=== PATIENT | female | born 1950 | race Caucasian/White ===

== ENCOUNTER → 2018-06-28 09:11 | Outpatient (CLI) | payer OTHER, SELFPAY ==
[2018-06-28 11:21] LABS: Abs Immature Grans 0.01 k/cumm (0.0-0.09); Absolute Eosinophil Count 0.22 k/cumm (0.0-0.7); Absolute Lymphocyte Count 1.45 k/cumm (1.2-3.4); Absolute Monocyte Count 0.51 k/cumm (0.11-0.7); Absolute Neutrophil Count 3.26 k/cumm (1.2-6.7); Basophils % 1.8; HCT 40.1 % (36.0-46.0); HGB 13.3 g/dL (12.0-15.5); Immature Grans % 0.2; Lymphocytes % 26.1; Mean Corp. HGB Concentration 33.2 g/dL (32.0-36.0); Mean Corpuscular Hemoglobin 30.1 pg (27.0-33.0); Mean Corpuscular Volume 90.7 fL (80-95); Mean Platelet Volume 10.7 fL (8.0-11.0); Monocytes % 9.2; Neutrophils % 58.7; Platelet Count 277 x1000/uL (130-400); RBC 4.42 m/cumm (4.00-5.20); White Blood Cell Count 5.55 k/cumm (4.4-10.8)
[2018-06-28 11:44] LABS: ALT 24 U/L (12-78); AST 20 U/L (15-37); Albumin 3.7 g/dL (3.4-5.0); Alkaline Phosphatase 116 U/L (46-116); Anion Gap 9.3 mmol/L (3-11); BUN 22 mg/dL (7-18); Bilirubin, Total 0.3 mg/dL (0.2-1.0); CO2 25.7 mmol/L (21.0-32.0); Calcium 8.7 mg/dL (8.5-10.1); Chloride 109 mmol/L (98-107); Estimated GFR 55.47 (mL/min/1.73m2); Glucose 90 mg/dL (70-100); Potassium 5.3 mmol/L (3.5-5.1); Sodium 144 mmol/L (136-145); Total Protein 6.7 g/dL (6.4-8.2)
== END ==
PROVIDERS: PCP Family Medicine; Visit Provider Family Medicine
DX: R10.13 Epigastric pain (principal); R10.9 Unspecified abdominal pain
CPT/HCPCS: 36415; 80053; 85025

== ENCOUNTER 2018-08-24 01:23 | Outpatient (CLI) | payer OTHER, MEDICARE, SELFPAY ==
--- NOTE | 2018-08-24 08:17 | DI.US_ITS ---
SYMPTOMS/DIAGNOSIS: GLOBUS SENSATION, THYROID NODULE, E04.1 THYROID ULTRASOUND: The right thyroid lobe measures 4.2 x 1.8 x 1.6 cm and contains a lower pole nodule measuring 9 x 5 x 6 mm, which is hypoechoic with some peripheral vascularity. The isthmus measures 5 mm. The left thyroid lobe measures 4.3 x 1.7 x 0.5 cm and is acoustically unremarkable. SUMMARY: A 9 x 5 x 6 mm right lower pole nodule is demonstrated. The examination is otherwise unremarkable.
[2018-08-24 08:40] LABS: TSH (W/Ref FT4) 5.04 uIU/mL (0.358-3.74)
[2018-08-24 08:56] LABS: FREE T4 0.91 ng/dL (0.76-1.46)
[2018-08-24] MEDS: Barium Sulfate 60% W/V 355 ML BTL PO (09:06)
--- NOTE | 2018-08-24 09:07 | DI.RAD_ITS ---
SYMPTOMS/DIAGNOSIS: DYSPHAGIA, R13.10 BARIUM SWALLOW: The patient swallowed barium without difficulty. There is some prominence of the epiglottis. No discrete mass is seen. There is no diverticulum or stricture. The esophagus appears unremarkable. SUMMARY: No stricture or diverticulum is demonstrated. Prominence of the epiglottis is identified. There is no definite mass; however, if there is any further clinical question, correlation with esophagoscopy is recommended.
== END 2018-08-24 01:43 ==
PROVIDERS: PCP Family Medicine; Visit Provider Family Medicine
DX: R13.10 Dysphagia, unspecified (principal); E04.1 Nontoxic single thyroid nodule; F45.8 Other somatoform disorders; K22.9 Disease of esophagus, unspecified
CPT/HCPCS: 36415; 74220; 76536; 84439; 84443

== ENCOUNTER 2018-08-30 00:09 | Outpatient (CLI) | payer OTHER, MEDICARE, SELFPAY ==
--- NOTE | 2018-08-30 07:30 | DI.MAMMO_ITS ---
SYMPTOM/DIAGNOSIS: SCREENING, Z12.31 MAMMOGRAMS: Mammograms were interpreted according to the usual protocol including computer analysis with CAD system, tomosynthesis and C view imaging. Comparison is made with exams from [id number]. The breasts are composed of fatty density tissue, breast density, Category A. No suspicious masses or suspicious microcalcifications are seen. There has been no significant change. IMPRESSION: Category 1A, negative mammogram. Routine screening is recommended. SA ASSESSMENT OF FINDINGS: Negative. Category 1. Patient will receive a letter notifying them of these results. BI-RAD category A. The breasts are almost entirely fatty.
== END 2018-08-30 00:29 ==
PROVIDERS: PCP Family Medicine; Visit Provider Family Medicine
DX: Z12.31 Encounter for screening mammogram for malignant neoplasm of breast (principal)
CPT/HCPCS: 77063; 77067

== ENCOUNTER 2018-09-03 02:24 | Outpatient (CLI) | payer OTHER, MEDICARE, SELFPAY ==
[2018-09-03 08:04] LABS: Iron 79 ug/dL (50-175)
[2018-09-03 08:18] LABS: ALT 24 U/L (12-78); AST 16 U/L (15-37); Albumin 3.4 g/dL (3.4-5.0); Alkaline Phosphatase 111 U/L (46-116); Anion Gap 6.7 mmol/L (3-11); BUN 19 mg/dL (7-18); Bilirubin, Total 0.4 mg/dL (0.2-1.0); CO2 30.3 mmol/L (21.0-32.0); CREATININE 1.07 mg/dL (0.55-1.02); Calcium 8.7 mg/dL (8.5-10.1); Chloride 107 mmol/L (98-107); Estimated GFR 51.31 (mL/min/1.73m2); Ferritin 18 ng/mL (8-388); Glucose 88 mg/dL (70-100); Potassium 4.1 mmol/L (3.5-5.1); Sodium 144 mmol/L (136-145); TSH (W/Ref FT4) 5.34 uIU/mL (0.358-3.74); Total Protein 6.1 g/dL (6.4-8.2)
[2018-09-03 08:34] LABS: FREE T4 0.93 ng/dL (0.76-1.46)
== END 2018-09-03 02:44 ==
PROVIDERS: PCP Family Medicine; Visit Provider Family Medicine
DX: G25.81 Restless legs syndrome (principal); R79.89 Other specified abnormal findings of blood chemistry
CPT/HCPCS: 36415; 80053; 82728; 83540; 84439; 84443

== ENCOUNTER 2018-10-15 08:24 | Outpatient (CLI) | payer OTHER, MEDICARE, SELFPAY ==
[2018-10-15 16:15] LABS: TSH 2.57 uIU/mL (0.358-3.74)
[2018-10-15 16:18] LABS: Ferritin 20 ng/mL (8-388)
== END 2018-10-15 08:44 ==
PROVIDERS: Nurse Practitioner; PCP Family Medicine; Visit Provider Family Medicine
DX: R79.89 Other specified abnormal findings of blood chemistry (principal); M25.50 Pain in unspecified joint
CPT/HCPCS: 36415; 82728; 84443

== ENCOUNTER 2018-11-24 10:28 | Emergency (ER) | payer OTHER, MEDICARE, SELFPAY ==
[2018-11-24] VITALS (22 sets, daily range): BP systolic 107–129; BP diastolic 62–103; PULSE 62–77; RESP 12–24; TEMP 36.8–37; O2SAT 93–98
--- NOTE | 2018-11-24 10:46 | ED.GENADUL_ITS ---
Discharge Plan Discharge Details Chief Complaint: Palpitatns Clinical Impression: Heart palpitations, Chest pain Primary Care Provider: Tali Rosa ED Provider: Yobani Colbert Home Meds and New Rx's Prescriptions: No Action adjuvant AS01B (PF)vial 1 of 2 [Shingrix Adjuvant Component-PF] suspension 1 ml IM ONCE Qty: 0.5 RF: 1 cyanocobalamin (vitamin B-12) [Vitamin B-12] 1,000 MCG tablet 1 tab PO DAILY RF: 0 calcium carbonate [Caltrate 600] 600 MG tablet 1 tab PO DAILY RF: 0 CENTRUM SILVER TABLET 1 EACH tablet 1 ea PO DAILY RF: 0 ibuprofen 600 MG tablet 600 mg PO Q6H PRN Qty: 120 RF: 0 bupropion HCl 300 MG tablet extended release 24 hr 300 mg PO DAILY Qty: 90 RF: 11 levothyroxine 50 mcg capsule 50 mcg PO DAILY Qty: 90 RF: 6 hydrochlorothiazide 25 mg tablet 25 mg PO DAILY Qty: 90 RF: 12 Discharge Instructions Instructions: Chest Pain (ED), Palpitations (ED) Additional Instructions: Please follow-up with your primary care provider as soon as possible for reassessment and for review of the Zeo patch. Please perform the exercise stress test that is scheduled here at the hospital. If you notice any worsening of your symptoms, or any new symptoms such as vomiting, diarrhea, fever, chills, shortness of breath, chest pain, numbness, weakness, or fainting , please return immediately to the emergency department for reevaluation. Please follow up with your primary care provider as soon as possible for reassessment and reevaluation. As always, it was a pleasure participating in your medical care today. Referrals: Tali Rosa MD, [place] [Primary Care Provider] - Medical Decision Making This is a 68-year-old female who presents for palpitations for the last 3 weeks. They are intermittent, usually occur in the morning, last 30 minutes. She has a slight change today with a small amount of twinging chest pain which is very brief, just achy. No tearing sensation, no heavy weight or pressure on her chest, no ripping sensation. She currently has no symptoms of palpitations at this time. She did contact her PCP who recommended that she come in for further evaluation in the ER. Patient does have cardiac risk factors of sleep apnea, obesity, hypertension and family disease. We will perform a cardiac workup, look for electrolyte abnormalities as she does have a history of bariatric surgery. I anticipate most of this will be relatively benign in the workup, and we will schedule for an outpatient Ziehl patch, as well as an outpatient exercise stress test. Patient does have a heart score of 4, and I feel at the very least a 3-hour troponin is certainly indicated. 2:03 PM Patient serial EKGs demonstrates no significant concerning abnormalities for STEMI. No significant hyper acute T wave changes. Serial troponins are all within normal limits. Patient has had appropriate echo stress test set up on an outpatient basis as well as cardiac monitoring testing. With negative serial troponins, negative EKGs, and signs and symptoms that certainly do appear atypical for ACS, though more clinically consistent with mild palpitations I feel she can be safely discharged home with close follow-up. I have extensively reviewed the treatment plan and discharge instructions with the patient. I have addressed all patient concerns at this time. The patient was made aware of what symptoms to monitor for that would warrant a return to the emergency department. Discussed the plan with the patient, they demonstrate verbal understanding and agreement with our assessment and plan at this time. EKG 10: 38 Rate 72, sinus rhythm, TN 170, QTc 431, QRS 100, no significant ST elevations or depressions, incomplete left bundle branch block, no significant Q waves except for very small questionable Q in aVF. No evidence of epsilon wave or delta wave. No evidence of Wellen syndrome or Brugada syndrome. EKG 11: 38 Rate 67, intervals normal, sinus rhythm, incomplete left bundle branch block. No ST elevations or depressions, no T wave inversions. No significant Q waves except for a small Q wave in aVF. PA AND LATERAL CHEST: Comparison is made with [id number]. The heart size is normal. The aorta is mildly tortuous. The lungs appear clear. No infiltrate, effusion or pneumothorax is seen. Degenerative changes are seen in the spine. No compression fractures are seen. IMPRESSION: No acute abnormality. HPI General Date/Time Provider Initiated Documentation: 11/24/18 10:43 . HPI Narrative: This is a 68-year-old female with past medical history of obstructive sleep apnea, hypertension, obesity, and a family history of cardiac disease who presents today for evaluation of palpitations. Patient states that for the last 3 weeks since she has had intermittent palpitations, usually lasting 30 minutes, usually present shortly after she wakes up in the morning. She denies any exertional component. And normally she has no chest pain. Today she has noticed slight twinges on the left side of her chest and some in the central region of her chest. This is still not exertional. No radiation to her arm or neck. She denies any pleuritic chest pain. Denies PE risk factors such as recent long car rides, immobilization, recent surgery, prior history of DVT or PE, family history of PE or DVT, morbid obesity, exogenous estrogen and smoking, hemoptysis, history of cancer. The patient did just have a sleep study, and this confirmed the continued need for CPAP at home. She did discuss the case with the ring maker at that time who recommended she follow-up with her PCP. The patient denies any tobacco history, any history of high cholesterol, or diabetes. Patient did have a stress test outpatient over 3 years ago. No abnormalities M. No history of cardiac disease. The patient denies any other complaints or modifying factors at this time. She denies any increase of alcohol use, any thyroid disease, or any increased use in caffeine. Past surgical history is positive for bariatric surgery. She denies any IV or illicit drug use. Related Data Home Medications Medication Instructions Recorded Confirmed Centrum Silver Tablet 1 ea PO DAILY 03/14/13 03/23/17 calcium carbonate [Caltrate 600] 1 tab PO DAILY 03/14/13 08/17/18 cyanocobalamin (vitamin B-12) 1 tab PO DAILY 03/14/13 08/17/18 [Vitamin B-12] ibuprofen 600 mg PO Q6H PRN #120 tab-cap 05/17/18 08/17/18 bupropion HCl 300 mg PO DAILY #90 tab-cap 06/28/18 08/17/18 adjuvant AS01B (PF), component 1 ml IM ONCE #0.5 ml 08/17/18 08/17/18 vial 1 of 2 intramuscular suspension levothyroxine 50 mcg capsule 50 mcg PO DAILY #90 cap 09/03/18 hydrochlorothiazide 25 mg tablet 25 mg PO DAILY #90 tab 09/22/18 Previous Rx's Medication Instructions Recorded ibuprofen 600 mg PO Q6H PRN #120 tab-cap 05/17/18 bupropion HCl 300 mg PO DAILY #90 tab-cap 06/28/18 adjuvant AS01B (PF), component 1 ml IM ONCE #0.5 ml 08/17/18 vial 1 of 2 intramuscular suspension levothyroxine 50 mcg capsule 50 mcg PO DAILY #90 cap 09/03/18 hydrochlorothiazide 25 mg tablet 25 mg PO DAILY #90 tab 09/22/18 Allergies Allergy/AdvReac Type Severity Reaction Status Date / Time meloxicam AdvReac Nausea Unverified 08/17/18 15:38 General Stated Complaint: Palpitatns EMILY: 2 Review of Systems Review of Systems All systems reviewed & are unremarkable except as noted in HPI and below PFSH Medical History Right Achilles tendinitis (Chronic 09/10/15) Reactive airway disease with acute exacerbation (Chronic 10/29/15) Primary insomnia (Chronic 09/10/15) Peptic reflux disease (Chronic 03/15/13) Knee pain (Chronic) Internal hemorrhoids without complication (Chronic) Increased body mass index (Chronic) Incontinence of feces (Chronic) Herpes zoster with complication (Chronic 05/17/18) Heart palpitations (Chronic 05/06/16) Essential hypertension (Chronic 10/21/13) Diverticulosis of colon without diverticulitis (Chronic) Depressive disorder (Chronic) Bursitis, calcaneal (Chronic 07/17/15) Bilateral low back pain without sciatica (Chronic) Anxiety (Chronic) Surgical History Status post bariatric surgery (Chronic) Appendectomy (~11/1995) Cholecystectomy (~2003) Colonoscopy - MAC GASTRIC SURGERY (~09/2007) Family History Mother RA (rheumatoid arthritis) Diabetes Essential hypertension Heart disease COPD (chronic obstructive pulmonary disease) Father COPD (chronic obstructive pulmonary disease) Sister Heart disease Brother No problems noted. Grandfather No problems noted. Grandfather No problems noted. Grandmother No problems noted. Grandmother No problems noted. 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 3.ENT: Atraumatic external nose and ears. Moist MM. Neck: Symmetric, trachea midline, No thyromegaly. 4.CVS: +S1/S2, No murmurs or gallops. Peripheral pulses 2+ and equal in all extremities. Brisk capillary refill in all extremities. Radial pulses +2 and equal bilaterally. 5.RESP: Unlabored respiratory effort. Clear to auscultation bilaterally. No wheezes rales or rhonchi 6.GI: Soft, Nontender/Nondistended, No hepatosplenomegaly. No guarding or rebound. 7.MSK: Normocephalic/Atraumatic, Extremities w/o deformity or ttp No cyanosis or clubbing, Normal movement of all extremities. No calf tenderness. 8.Skin: Warm, Dry. No rashes or lesions. 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 Sensation grossly intact, no focal neurologic deficits. 10.Psych: (AAO) x3. Appropriate mood and affect Course Vital Signs Temperature 37.0 C 11/24/18 10:39 Pulse 73 11/24/18 10:39 Respiratory Rate 14 11/24/18 10:39 Blood Pressure 129/103 H 11/24/18 10:39 Pulse Oximetry 97 11/24/18 10:39 Temperature 37.0 C 11/24/18 10:39 Temperature Source Temporal Artery Scan 11/24/18 10:39 Pulse 73 11/24/18 10:39 Respiratory Rate 14 11/24/18 10:39 Respiratory Effort Non-Labored 11/24/18 10:39 Blood Pressure 129/103 H 11/24/18 10:39 Pulse Oximetry 97 11/24/18 10:39 Oxygen Delivery Method Room Air 11/24/18 10:39 Oxygen Flow Rate 0 11/24/18 10:39
[2018-11-24 10:55] LABS: Abs Immature Grans 0.01 k/cumm (0.0-0.09); Absolute Basophil Count 0.07 k/cumm (0.0-0.2); Absolute Eosinophil Count 0.21 k/cumm (0.0-0.7); Absolute Lymphocyte Count 1.55 k/cumm (1.2-3.4); Absolute Monocyte Count 0.54 k/cumm (0.11-0.7); Basophils % 1.2; Eosinophils % 3.5; HCT 42.6 % (36.0-46.0); HGB 14.3 g/dL (12.0-15.5); Immature Grans % 0.2; Lymphocytes % 25.5; Mean Corp. HGB Concentration 33.6 g/dL (32.0-36.0); Mean Corpuscular Hemoglobin 30.8 pg (27.0-33.0); Mean Corpuscular Volume 91.6 fL (80-95); Mean Platelet Volume 9.8 fL (8.0-11.0); Monocytes % 8.9; Neutrophils % 60.7; Platelet Count 315 x1000/uL (130-400); RBC 4.65 m/cumm (4.00-5.20); RBC Distribution Width 13.2 % (11.7-14.6); White Blood Cell Count 6.08 k/cumm (4.4-10.8)
--- NOTE | 2018-11-24 11:03 | DI.RAD_ITS ---
SYMPTOMS/DIAGNOSIS: LEFT CENTRAL CHEST PAIN PA AND LATERAL CHEST: Comparison is made with [id number]. The heart size is normal. The aorta is mildly tortuous. The lungs appear clear. No infiltrate, effusion or pneumothorax is seen. Degenerative changes are seen in the spine. No compression fractures are seen. IMPRESSION: No acute abnormality.
[2018-11-24 11:20] LABS: ALT 31 U/L (12-78); AST 20 U/L (15-37); Albumin 3.9 g/dL (3.4-5.0); Alkaline Phosphatase 127 U/L (46-116); Anion Gap 10.8 mmol/L (3-11); BUN 21 mg/dL (7-18); Bilirubin, Total 0.3 mg/dL (0.2-1.0); CO2 30.2 mmol/L (21.0-32.0); CREATININE 1.15 mg/dL (0.55-1.02); Calcium 9.1 mg/dL (8.5-10.1); Chloride 104 mmol/L (98-107); Estimated GFR 47.07 (mL/min/1.73m2); Glucose 96 mg/dL (70-100); Magnesium 2.3 mg/dL (1.8-2.4); PHOSPHORUS 3.4 mg/dL (2.6-4.7); Potassium 3.3 mmol/L (3.5-5.1); Sodium 145 mmol/L (136-145); TSH (W/Ref FT4) 1.48 uIU/mL (0.358-3.74); Total Protein 7.5 g/dL (6.4-8.2)
[2018-11-24 11:21] LABS: Troponin I < 0.02 ng/mL (0.00-0.06)
--- NOTE | 2018-11-24 11:26 | NUR.NOTE ---
Addendum entered by Meg Montiel 11/24/18 11:53: Patient realized that tomorrow was not a good time for her. She scheduled the stress test for @ 8:30am. Meg Montiel Original Note: Nursing Note: Regular treadmill stress test scheduled for patient, . @ 8:30am. Pt given instruction sheet. Meg Montiel.
[2018-11-24 13:56] LABS: Troponin I 0.02 ng/mL (0.00-0.06)
--- NOTE | 2018-12-13 11:45 | ZIOP_ITS ---
ZIO PATCH INTERPREATION DATE OF DICTATION December 13, 2018 INDICATION Palpitations. Analysis time 13 days and 2 hours. The predominant underlying rhythm is sinus rhythm. Average heart rate 68 beats per minute. Minimum heart rate 46 beats per minute. Max heart rate 139 beats per minute. Two short bursts of SVT. The longest lasting 8 beats with an average heart rate of 111 beats. Otherwise, rare isolated atrial ectopy. Rare isolated ventricular ectopy. No nonsustained VT. No significant pauses or bradyarrhythmias. Four patient triggered events correspond predominantly to sinus rhythm and occasionally to sinus rhythm with an isolated PAC. Four diary entries with symptoms such as fluttering/racing/lightheadedness/chest pressure corresponding predominant to sinus rhythm and occasionally to sinus rhythm with isolated atrial ectopy. Ebony Alegria M.D. [facility] - 12/13/2018
== END 2018-11-24 14:09 | disposition home or self-care (01) ==
PROVIDERS: Emergency Provider Student in an Organized Health Care Education/Training Program; PCP Family Medicine
DX: R00.2 Palpitations (principal); R07.9 Chest pain, unspecified; Z83.2 Family history of diseases of the blood and blood-forming organs and certain disorders involving the immune mechanism; I10 Essential (primary) hypertension
CPT/HCPCS: 36415; 80053; 93005; 93225; 99285; 71046; 83735; 84100; 84443; 84484; 85025; 93010

== ENCOUNTER 2018-12-01 00:20 | Outpatient (CLI) | payer OTHER, MEDICARE, SELFPAY ==
--- NOTE | 2018-12-01 08:30 | ETT_ITS ---
*[facility]* *[facility]* [address] [place] [address] Stress Electrocardiography Marco Antonio protocol Date of study: 12/01/2018 *PATIENT PRESENTATION* Height: 157.5cm (62in) Blood Pressure: Weight: 113.2kg (249lb) BSA: 2.29m^2 Referring physician: Yobani Colbert Ordering physician: Yobani Colbert Impressions: Normal study after maximal exercise. Summary: 1. Stress ECG conclusions: The stress ECG is negative. Farooq treadmill score: 8. This score predicts a low risk of cardiac events. 2. Stress: The target heart rate was achieved. The heart rate response to stress is normal. There is a normal resting blood pressure with an appropriate response to stress. The patient experienced no chest pain during stress. Exercise capacity is above normal for age. 3. Treadmill exercise testing was performed using the Marco Antonio protocol. The patient exercised for 8 min, to protocol stage 3, to a maximal work rate of 10.2mets. Exercise was terminated due to dyspnea and fatigue. Indication: R07.9, Appropriate Use Criteria: A (Appropriate). History: Risk factors: Family history of coronary artery disease. Hypertension. Obesity. Cholesterol: 164mg/dl. HDL: 74mg/dl. LDL: 83mg/dl. Triglycerides: 66mg/dl. ALLERGIES: NO KNOWN ALLERGIES. MEDICATIONS: HYDROCHLOROTHIAZIDE 25 MG DAILY. BUPROPION XL 300 MG DAILY. ATENOLOL-CHLORTHALID 50MG-25MG DAILY. FERROUS SULFATE 325 MG ONCE DAILY. RA VITAMIN C 500 MG DAILY. LEVOTHYROXINE SODIUM 50MCG DAILY. Protocol: Marco Antonio protocol. Baseline ECG: SINUS RHYTHM. HR 64 BPM. Normal ECG. Stress protocol: + +---+ + !Stage !HR !BP (mmHg) ! + +---+ + !Baseline supine !64 !110/72 (85) ! + +---+ + !Baseline standing !70 !128/80 (96) ! + +---+ + !Stage I; 1.7mph, 10degrees; 3 min !119!140/78 (99) ! + +---+ + !Stage II; 2.5mph, 12degrees; 3 min !121!160/82 (108) ! + +---+ + !Stage III; 3.4mph, 14degrees; 3 min!142!160 (systolic)! + +---+ + !Recovery; 1 min !118!180/80 (113) ! + +---+ + !Recovery; 3 min !85 !160/80 (107) ! + +---+ + !Recovery; 6 min !79 !128/70 (89) ! + +---+ + * Stress results: Maximal heart rate during stress was 141bpm (92% of maximal predicted heart rate). The maximal predicted heart rate was 153bpm. The target heart rate was achieved. The heart rate response to stress is normal. There is a normal resting blood pressure with an appropriate response to stress. The rate-pressure product for the peak heart rate and blood pressure was 30272yx Hg/min. The patient experienced no chest pain during stress. Exercise capacity is above normal for age. Stress ECG: TREADMILL PORTION OF STRESS TEST ENDED IN 8 MINUTES DUE TO FATIGUE AND SHORTNESS OF BREATH. MAX HR = 141 % OF TARGET = 92. APPROXIMATE METS ACHIEVED = 10.16 RARE PVCs NO ANGINA NO SIGNIFICANT ST SEGMENT CHANGES ABOVE AVERAGE FUNCTIONAL CAPACITY FOR EXERCISE. The stress ECG is negative. Farooq treadmill score: 8. This score predicts a low risk of cardiac events. Study data: Cornel Mullins MD supervised and was readily available during the procedure. This study was interpreted by [facility]. Study status: Routine. Consent: The risks, benefits, and alternatives to the procedure were explained to the patient and informed consent was obtained. Procedure: Initial setup. A baseline ECG was recorded. Surface ECG leads and manual cuff blood pressure measurements were monitored. Heart sounds: Normal. Lung sounds: Normal. Treadmill exercise testing was performed using the Marco Antonio protocol. The patient exercised for 8 min, to protocol stage 3, to a maximal work rate of 10.2mets. Exercise was terminated due to dyspnea and fatigue. Study completion: The patient tolerated the procedure well and was discharged from the lab. Discharge: The patient left the laboratory in stable condition. Birthdate: Patient birthdate: 1950. Sex: Gender: female. Study date: Study date: 12/01/2018. Study time: 08:30 AM. Signature Documentation: The Stress ECG portion of this study was interpreted by Cornel Mlulins MD. Electronically signed by Cornel Mullins 12/01/2018 10:59
== END 2018-12-01 00:40 ==
PROVIDERS: PCP Family Medicine; Visit Provider Student in an Organized Health Care Education/Training Program
DX: R07.9 Chest pain, unspecified (principal); I10 Essential (primary) hypertension; E66.9 Obesity, unspecified; Z82.49 Family history of ischemic heart disease and other diseases of the circulatory system
CPT/HCPCS: 93016; 93018; 93017

== ENCOUNTER 2019-03-14 00:54 | Outpatient (CLI) | payer OTHER, MEDICARE, SELFPAY ==
--- NOTE | 2019-03-14 15:31 | DI.US_ITS ---
SYMPTOM/DIAGNOSIS: 6 MO F/U, F/U THYROID NODULE, E04.1,E03.8 THYROID ULTRASOUND: Comparison is made with 08/24/18. The right lobe measures 3.5 by 1.9 by 1.7 cm. The left lobe measures 3.8 by 1.5 by 1.3 cm. The isthmus measures .5 cm. There is normal and symmetric blood flow to the thyroid gland. There is again seen a hypoechoic, avascular nodule in the lower pole of the right lobe of the thyroid gland. It measures .8 by .8 by .5 cm. compared with .9 by .5 by .6 cm. on the prior examination. No other thyroid nodules are appreciated. IMPRESSION: Solid, 0.8 cm. thyroid nodule.
== END 2019-03-14 01:14 ==
PROVIDERS: PCP Family Medicine; Visit Provider Physician Assistant
DX: E04.1 Nontoxic single thyroid nodule (principal); E03.8 Other specified hypothyroidism
CPT/HCPCS: 76536

== ENCOUNTER 2020-05-11 00:47 | Outpatient (CLI) | payer MEDICARE, OTHER, SELFPAY ==
--- NOTE | 2020-05-11 08:15 | DI.RAD_ITS ---
EXAM: XR CERVICAL SPINE COMP 4-5V CLINICAL HISTORY: neck pain ? myelopathy, neck pain, M54.2. TECHNIQUE: 2D digital imaging was performed. COMPARISON: No exams were available for comparison FINDINGS: The odontoid is intact. The lateral masses appear well aligned. There is normal alignment of the ce rvical spine. There is disc space narrowing at C5-6 and C6-C7. Endplate osteophytes are seen throug hout the cervical spine. There are degenerative changes of the facet throughout the cervical spine. There is mild bilateral neural foraminal narrowing at C4-5 and C5-C6. No acute fractures or subluxa tions are seen. The prevertebral soft tissues are unremarkable. IMPRESSION: Moderate cervical spondylosis. DATA REPOSITORY: RADIATION DOSE DELIVERED:
--- NOTE | 2020-05-11 08:15 | DI.RAD_ITS ---
EXAM: XR LUMBAR SPINE COMPLETE CLINICAL HISTORY: LBP and b/l leg pain, M54.5. TECHNIQUE: 2D digital imaging was performed. COMPARISON: No exams were available for comparison FINDINGS: There are 5 lumbar type vertebral bodies. There is normal alignment. No spondylolysis or spondyloli sthesis is seen. There is disc space narrowing at L4-5 and L5-S1. Endplate osteophytes are seen thr oughout the lumbar spine. Facet arthropathy is present throughout the lumbar spine. No acute fractu re or subluxation is seen. Surgical clips are seen overlying the left abdomen. IMPRESSION: Moderate degenerative changes in the lumbar spine. DATA REPOSITORY: RADIATION DOSE DELIVERED:
--- NOTE | 2020-05-11 08:15 | DI.RAD_ITS ---
EXAM: XR HIP PELVIS ADULT BL CLINICAL HISTORY: b/l hip pain, M25.551, M25.552. TECHNIQUE: 2D digital imaging was performed. COMPARISON: No exams were available for comparison FINDINGS: Mild degenerative changes are seen at the hips bilaterally characterized by joint space narrowing and subchondral sclerosis. The sacroiliac joints and symphysis pubis are intact. No acute fracture or dislocation is seen. The soft tissues are unremarkable. IMPRESSION: Mild degenerative changes of the hips. DATA REPOSITORY: RADIATION DOSE DELIVERED:
== END 2020-05-11 01:07 ==
PROVIDERS: PCP Family Medicine; Visit Provider Family Medicine
DX: M54.2 Cervicalgia (principal); M50.322 Other cervical disc degeneration at C5-C6 level; M50.323 Other cervical disc degeneration at C6-C7 level; M47.812 Spondylosis without myelopathy or radiculopathy, cervical region; M25.551 Pain in right hip; M25.552 Pain in left hip; M16.0 Bilateral primary osteoarthritis of hip; M54.5 Low back pain; M79.604 Pain in right leg; M79.605 Pain in left leg; M47.817 Spondylosis without myelopathy or radiculopathy, lumbosacral region; M51.37 Other intervertebral disc degeneration, lumbosacral region
CPT/HCPCS: 73521; 72050; 72110

== ENCOUNTER 2020-05-14 02:14 | Outpatient (CLI) | payer MEDICARE, OTHER, SELFPAY ==
[2020-05-14 13:53] LABS: HCT 40.4 % (36.0-46.0); HGB 13.4 g/dL (12.0-15.5); Mean Corp. HGB Concentration 33.2 g/dL (32.0-36.0); Mean Corpuscular Hemoglobin 30.2 pg (27.0-33.0); Mean Corpuscular Volume 91.2 fL (80-95); Mean Platelet Volume 9.5 fL (8.0-11.0); Platelet Count 338 x1000/uL (130-400); RBC 4.43 m/cumm (4.00-5.20); RBC Distribution Width 13.1 % (11.7-14.6); White Blood Cell Count 6.84 k/cumm (4.4-10.8)
[2020-05-14 14:24] LABS: Iron 99 ug/dL (50-170)
[2020-05-14 14:32] LABS: ALT 29 U/L (14-59); AST 21 U/L (15-37); Albumin 3.8 g/dL (3.4-5.0); Alkaline Phosphatase 127 U/L (46-116); Anion Gap 9.1 mmol/L (3-11); BUN 21 mg/dL (7-18); Bilirubin, Total 0.3 mg/dL (0.2-1.0); CO2 27.9 mmol/L (21.0-32.0); CREATININE 1.03 mg/dL (0.55-1.02); Calcium 8.7 mg/dL (8.5-10.1); Calculated LDL 89 mg/dL (<100); Chloride 105 mmol/L (98-107); Cholesterol 176 mg/dL (<200); Estimated GFR 53.29 (mL/min/1.73m2); Glucose 82 mg/dL (74-106); HDL Cholesterol 71 mg/dL (40-60); Potassium 3.9 mmol/L (3.5-5.1); Sodium 142 mmol/L (136-145); TSH (W/Ref FT4) 2.81 uIU/mL (0.36-3.74); Total Protein 6.7 g/dL (6.4-8.2); Triglyceride 82 mg/dL (<150)
[2020-05-15 09:14] LABS: Thyroglobulin Antibody 88 U/mL (<=60); Thyroperoxidase Antibody 81 U/mL (<=60)
== END 2020-05-14 02:34 ==
PROVIDERS: PCP Family Medicine; Visit Provider Family Medicine
DX: E04.1 Nontoxic single thyroid nodule (principal); G25.81 Restless legs syndrome; G47.30 Sleep apnea, unspecified; I10 Essential (primary) hypertension; R79.89 Other specified abnormal findings of blood chemistry; Z98.84 Bariatric surgery status
CPT/HCPCS: 36415; 80053; 80061; 85027; 86376; 83540; 84443

== ENCOUNTER 2020-08-09 12:04 | Outpatient (CLI) | payer MEDICARE, OTHER, SELFPAY ==
[2020-08-09 14:06] LABS: Ferritin 24 ng/mL (8-252)
== END 2020-08-09 12:24 ==
PROVIDERS: PCP Family Medicine; Visit Provider Nurse Practitioner
DX: M25.569 Pain in unspecified knee (principal)
CPT/HCPCS: 36415; 82728

== ENCOUNTER 2020-12-13 23:58 | Outpatient (REF) | payer OTHER, SELFPAY ==
[2020-12-14 18:22] LABS: COVID-19 RT-PCR UVMMC Result Negative (Negative)
== END 2020-12-13 23:59 | disposition home or self-care (01) ==
LOC: LBN 23:58
PROVIDERS: PCP Family Medicine; Visit Provider Nurse Practitioner
DX: Z20.822 Contact with and (suspected) exposure to COVID-19 (principal)
CPT/HCPCS: U0003; U0005

== ENCOUNTER 2020-12-18 14:27 | Outpatient (REF) | payer OTHER, SELFPAY ==
[2020-12-18 21:49] LABS: HCT 41.7 % (36.0-46.0); HGB 13.9 g/dL (11.2-15.7); MCHC 33.3 % (32.0-36.0); MCV 89.9 fL (80-95); MPV 10.1 fL (8.0-11.0); Platelet Count 339 10^3/uL (130-400); RBC 4.64 10^6/uL (3.93-5.22); RDW 12.5 % (11.7-14.6); RDW-SD 41.2 fL; WBC 5.89 10^3/uL (4.4-10.8)
[2020-12-18 22:16] LABS: ALT 28 U/L (14-59); AST 21 U/L (15-37); Albumin 3.8 g/dL (3.4-5.0); Alkaline Phosphatase 135 U/L (46-116); Anion Gap 8.3 mmol/L (3-11); BUN 21 mg/dL (7-18); Bilirubin, Total 0.3 mg/dL (0.2-1.0); CO2 27.7 mmol/L (21.0-32.0); CREATININE 1.4 mg/dL (0.55-1.02); Calcium 8.8 mg/dL (8.5-10.1); Chloride 108 mmol/L (98-107); Estimated GFR 37.28 (mL/min/1.73m2); Glucose 96 mg/dL (74-106); Magnesium 2.3 mg/dL (1.8-2.4); Potassium 3.8 mmol/L (3.5-5.1); Sodium 144 mmol/L (136-145); TSH (W/Ref FT4) 1.86 uIU/mL (0.36-3.74); Total Protein 6.8 g/dL (6.4-8.2)
== END 2020-12-18 14:28 | disposition home or self-care (01) ==
LOC: LBN 14:27
PROVIDERS: PCP Family Medicine; Visit Provider Family Medicine
DX: I49.9 Cardiac arrhythmia, unspecified (principal); R00.2 Palpitations
CPT/HCPCS: 80053; 85027; 83735; 84443

== ENCOUNTER 2020-12-20 13:57 | Outpatient (RCR) | payer OTHER, SELFPAY ==
--- NOTE | 2020-12-20 14:30 | HOLTER_ITS ---
APPROVED REPORT Exam Type: HOLTER MONITOR APPLICATION Reason for Test: irregular HR Patient Location: O Conclusion This is a 48-hour Holter monitor ordered for indication of cardiac arrhythmia. Patient was in normal sinus rhythm for the majority the recording with an average heart rate of 76 bp m. There were 2 episodes of supraventricular tachycardia with the longest lasting 5 beats. There were r are PACs and rare PVCs. There were no episodes of ventricular tachycardia There were no episodes of atrial fibrillation, no pauses greater than 3 seconds and no evidence of hi gh degree heart block. There were 2 patient diary events associated with normal sinus rhythm.
== END 2021-01-06 23:59 | disposition home or self-care (01) ==
LOC: RT 13:57
PROVIDERS: PCP Family Medicine; Visit Provider Family Medicine
DX: I49.8 Other specified cardiac arrhythmias (principal); I47.1 Supraventricular tachycardia; I49.1 Atrial premature depolarization; I49.3 Ventricular premature depolarization
CPT/HCPCS: 93227; 93228; 93225; 93226

== ENCOUNTER 2021-02-21 21:11 | Outpatient (REF) | payer OTHER, SELFPAY ==
[2021-02-21 14:18] LABS: Hemoglobin A1C 5.2 % (<5.7)
[2021-02-21 14:31] LABS: ALT 39 U/L (14-59); AST 24 U/L (15-37); Alkaline Phosphatase 141 U/L (46-116); Anion Gap 11.3 mmol/L (3-11); BUN 15 mg/dL (7-18); Bilirubin, Total 0.6 mg/dL (0.2-1.0); CO2 26.7 mmol/L (21.0-32.0); Calcium 9.2 mg/dL (8.5-10.1); Chloride 107 mmol/L (98-107); Estimated GFR 54.97 (mL/min/1.73m2); Glucose 82 mg/dL (74-106); Potassium 3.8 mmol/L (3.5-5.1); Sodium 145 mmol/L (136-145); TSH (W/Ref FT4) 2.98 uIU/mL (0.36-3.74); Total Protein 6.9 g/dL (6.4-8.2)
== END 2021-02-21 21:12 | disposition home or self-care (01) ==
LOC: LBN 21:11
PROVIDERS: PCP Family Medicine; Visit Provider Family Medicine
DX: I10 Essential (primary) hypertension (principal); E04.1 Nontoxic single thyroid nodule; E11.9 Type 2 diabetes mellitus without complications; G47.30 Sleep apnea, unspecified; Z68.35 Body mass index [BMI] 35.0-35.9, adult
CPT/HCPCS: 80053; 83036; 84443

== ENCOUNTER 2021-02-26 01:15 | Outpatient (CLI) | payer MEDICARE, OTHER, SELFPAY ==
--- NOTE | 2021-02-26 08:20 | DI.MAMMO_ITS ---
EXAM: MG MAMMO SCREENING CLINICAL HISTORY: screening,z12.39 TECHNIQUE: Mammograms were interpreted according to the usual protocol including computer analysis w FITiST CAD system, tomosynthesis and C-view imaging. COMPARISON: FINDINGS: The breasts are moderate density with fairly symmetrical distribution of fibroglandular tissue. No d ominant mass or clumped microcalcification is identified in either breast. The current examination i s compared with previous examinations including August 2018 and there has been no gross interval sonja nge in appearance in comparison with the prior studies. IMPRESSION: No specific evidence of malignancy at this time. Routine screening examinations are suggested at yea rly intervals in this age group according to the ACS ACR guidelines. BI-RADS Category 1 - Negative Breast Density - Category B - Scattered areas of fibroglandular density
== END 2021-02-26 01:35 ==
PROVIDERS: PCP Family Medicine; Visit Provider Family Medicine
DX: Z12.31 Encounter for screening mammogram for malignant neoplasm of breast (principal)
CPT/HCPCS: 77063; 77067

== ENCOUNTER 2021-04-15 02:23 | Outpatient (CLI) | payer MEDICARE, OTHER, SELFPAY ==
--- NOTE | 2021-04-15 06:30 | DI.US_ITS ---
Exam(s) US THYROID EXAM: US THYROID CLINICAL HISTORY: THYROID NODULE,E04.1,COMPARE TO 2018 US. TECHNIQUE: Ultrasound thyroid performed using standard protocol. COMPARISON: US US thyroid from 03/14/2019 FINDINGS: ISTHMUS: 4 mm RIGHT LOBE: Size: 3.9 x 1.6 x 1.4 cm Echogenicity: Normal. Vascularity: Normal. Nodules: The inferior thyroid nodule is not visualized on the current examination. There is a 0.3 cm cyst in the midpole of the right thyroid gland. LEFT LOBE: Size: 3.2 x 1.3 x 1.2 cm Echogenicity: Normal. Vascularity: Normal. Nodules: None. OTHER FINDINGS: There is a small 0.3 cm cyst in the isthmus. No suspicious lymph nodes are present in the neck. IMPRESSION: 1. No suspicious thyroid nodules. 2. The previously noted inferior right thyroid nodule is not visualized on the current examination. DATA REPOSITORY:
--- NOTE | 2021-04-15 09:30 | DI.RAD_ITS ---
Exam(s) RF BARIUM SWALLOW EXAM: RF BARIUM SWALLOW CLINICAL HISTORY: globus SENSATION,R09.89 TECHNIQUE: 2D and realtime digital imaging was performed. CONTRAST MATERIAL: Oral barium Oral water soluble contrast was administered. COMPARISON: CR,RF RF barium swallow from 08/24/2018 FINDINGS: CHEST X-RAY: The heart and pulmonary vasculature are within normal limits. The lungs are clear. No pl eural effusion or pneumothorax is present. The bones are within normal limits fo the patient's age. ESOPHAGRAM: The esophagus is patent with no evidence for erosions, fold thickening, strictures, or ma sses. With regards to the motility, there is a normal primary stripping wave. No tertiary contraction s were noted. No aspiration occurred during the examination. There is a small to moderate size hiat al hernia. No gastroesophageal reflux is identified during the examination. The patient swallowed a barium tablet without complication. IMPRESSION: Small moderate size hiatal hernia. RADIATION DOSE DELIVERED: Ka,r= mGy
[2021-04-15] MEDS: Barium Sulfate 700 MG TAB PO (09:31)
[2021-04-15] MEDS: Barium Sulfate 60% W/V 355 ML BTL PO (09:32)
== END 2021-04-15 02:43 ==
PROVIDERS: PCP Family Medicine; Visit Provider Family Medicine
DX: R09.89 Other specified symptoms and signs involving the circulatory and respiratory systems (principal); K44.1 Diaphragmatic hernia with gangrene
CPT/HCPCS: 74221; 76536; J3490

== ENCOUNTER 2022-03-18 12:26 | Outpatient (CLI) | payer MEDICARE, SELFPAY ==
--- NOTE | 2022-03-18 11:18 | DI.RAD_ITS ---
Exam(s) XR KNEE LT 3V AP,LAT,GUCCI EXAM: XR KNEE LT 3V AP,LAT,GUCCI CLINICAL HISTORY: left knee pain, M25.562. TECHNIQUE: 2D digital imaging was performed. COMPARISON: CR LEFT KNEE 4+ VIEWS from 03/28/2015 FINDINGS: 3 views No evidence of fracture although there does appear to be a joint effusion. Joint effusion is similar in size to 2015. Small calcification seen distal quadriceps tendon also unchanged. On the standing view there is advanced narrowing of the medial compartment which has progressed from previous study 7 years ago. Milder narrowing of the lateral compartment. Patellofemoral compartment also exhibits some progression of degenerative change. IMPRESSION: Compared to 2015 there has been progression of degenerative changes as described above. Joint effusion is also again noted. DATA REPOSITORY: RADIATION DOSE DELIVERED:
== END 2022-03-18 12:46 ==
PROVIDERS: PCP Family Medicine; Visit Provider Family Medicine
DX: M25.462 Effusion, left knee
CPT/HCPCS: 73562

== ENCOUNTER 2022-05-16 01:37 | Outpatient (CLI) | payer MEDICARE, SELFPAY ==
[2022-05-16 13:17] LABS: Hemoglobin A1C 5.1 % (<5.7)
[2022-05-16 13:29] LABS: ALT 35 U/L (14-59); AST 32 U/L (15-37); Albumin 3.7 g/dL (3.4-5.0); Alkaline Phosphatase 133 U/L (46-116); Anion Gap 7.7 mmol/L (3-11); BUN 25 mg/dL (7-18); Bilirubin, Total 0.4 mg/dL (0.2-1.0); CO2 32.3 mmol/L (21.0-32.0); CREATININE 1.1 mg/dL (0.55-1.02); Calcium 8.6 mg/dL (8.5-10.1); Calculated LDL 70 mg/dL (<100); Chloride 103 mmol/L (98-107); Cholesterol 169 mg/dL (<200); Glucose 79 mg/dL (74-106); HDL Cholesterol 77 mg/dL (40-60); Potassium 3.8 mmol/L (3.5-5.1); Sodium 143 mmol/L (136-145); Total Protein 6.8 g/dL (6.4-8.2); Triglyceride 114 mg/dL (<150)
[2022-05-20 12:24] LABS: TSH (W/Ref FT4) 1.78 uIU/mL (0.36-3.74)
[2022-05-20 12:43] LABS: Lab Add On Test DONE
== END 2022-05-16 01:38 | disposition home or self-care (01) ==
LOC: LOS 01:39
PROVIDERS: PCP Family Medicine; Visit Provider Family Medicine
DX: I10 Essential (primary) hypertension (principal); E11.9 Type 2 diabetes mellitus without complications
CPT/HCPCS: 36415; 80053; 80061; 83036; 84443

== ENCOUNTER 2022-05-20 16:46 | Outpatient (REF) | payer MEDICARE, SELFPAY | END 2022-05-20 16:47 | disposition home or self-care (01) | LOC: LBN 16:46 | PROVIDERS: PCP Family Medicine; Visit Provider Family Medicine | DX: N76.0 Acute vaginitis (principal) | CPT/HCPCS: 87480; 87510; 87660 ==

== ENCOUNTER 2022-06-25 16:35 | Emergency (ER) | payer MEDICARE, SELFPAY ==
[2022-06-25] VITALS (17 sets, daily range): BP systolic 148–155; BP diastolic 58–75; PULSE 66–96; RESP 14–18; TEMP 36.3–36.8; O2SAT 97–99
--- NOTE | 2022-06-25 16:30 | RT.EKG_ITS ---
APPROVED REPORT Exam: Resting ECG Reason for Exam: chest pain Patient Location: E HR:81 bpm ECG Measurements Heart Rate 81 AXIS IN 172 P 40 QRSd 95 QRS 9 QT 388 T 42 QTc 451 Conclusion Sinus rhythm...normal P axis, V-rate 60- 99
[2022-06-25 17:19] LABS: Abs Immature Grans 0.01 10^3/uL (0.0-0.06); Absolute Basophil Count 0.09 10^3/uL (0.0-0.2); Absolute Eosinophil Count 0.23 10^3/uL (0.0-0.7); Absolute Lymphocyte Count 1.54 10^3/uL (1.2-3.4); Absolute Monocyte Count 0.59 10^3/uL (0.1-0.8); Absolute Neutrophil Count 3.88 10^3/uL (1.2-6.7); Basophils % 1.4; Eosinophils % 3.6; HCT 40.5 % (36.0-46.0); HGB 13.9 g/dL (11.2-15.7); Immature Grans % 0.2; Lymphocytes % 24.3; MCH 30.2 pg (27.0-33.0); MCHC 34.3 % (32.0-36.0); MCV 88 fL (80-95); MPV 9.4 fL (8.0-11.0); Monocytes % 9.3; Neutrophils % 61.2; Platelet Count 303 10^3/uL (130-400); RDW 12.6 % (11.7-14.6); RDW-SD 40.7 fL; WBC 6.34 10^3/uL (4.4-10.8)
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
--- NOTE | 2022-06-25 17:30 | DI.RAD_ITS ---
Exam(s) XR CHEST 2V PA LATERAL EXAM: XR CHEST 2V PA LATERAL CLINICAL HISTORY: Chest pain TECHNIQUE: 2D digital imaging was performed. COMPARISON: CR,RF RF BARIUM SWALLOW from 04/15/2021 FINDINGS: MEDIASTINUM: Normal. HEART: Normal. PULMONARY VASCULATURE: Normal. LUNGS: Clear. PLEURAL SPACE: No pleural effusion or pneumothorax. BONE:Unremarkable for age. IMPRESSION: No acute abnormality. DATA REPOSITORY: RADIATION DOSE DELIVERED:
[2022-06-25 17:33] LABS: ALT 35 U/L (14-59); AST 22 U/L (15-37); Albumin 3.7 g/dL (3.4-5.0); Alkaline Phosphatase 145 U/L (46-116); Anion Gap 9.5 mmol/L (3-11); BUN 29 mg/dL (7-18); Bilirubin, Total 0.3 mg/dL (0.2-1.0); CO2 28.5 mmol/L (21.0-32.0); CREATININE 1.2 mg/dL (0.55-1.02); Calcium 8.6 mg/dL (8.5-10.1); Chloride 104 mmol/L (98-107); Estimated GFR 44.41 (mL/min/1.73m2); Glucose 122 mg/dL (74-106); Magnesium 2.2 mg/dL (1.8-2.4); Potassium 3.2 mmol/L (3.5-5.1); Sodium 142 mmol/L (136-145); Total Protein 7.1 g/dL (6.4-8.2); Troponin I < 50 ng/L (<or=60)
--- NOTE | 2022-06-25 18:23 | DI.VRAD_ITS ---
PROCEDURE INFORMATION: Exam: XR Chest Exam date and time: 06/25/2022 5:47 PM Age: 71 years old Clinical indication: Other: Chest pain TECHNIQUE: Imaging protocol: Radiologic exam of the chest. Views: 2 views. COMPARISON: CR XR CHEST 2V PA LATERAL 11/24/2018 10:57 AM FINDINGS: Lungs: Unremarkable. No consolidation. Pleural spaces: Unremarkable. No pleural effusion. No pneumothorax. Heart/Mediastinum: Unremarkable. No cardiomegaly. Bones/joints: Unremarkable. IMPRESSION: No acute findings. Dictated and Authenticated by: Sandeep Wagoner MD. Ordering:MOHAN Dosuza MD
[2022-06-25] MEDS: Potassium Chloride 20 MEQ TABCR 40 MEQ PO (19:40)
== END 2022-06-25 19:47 | disposition home or self-care (01) ==
PROVIDERS: Emergency Provider Registered Nurse Emergency; PCP Family Medicine
DX: R07.9 Chest pain, unspecified (principal); I10 Essential (primary) hypertension; J45.901 Unspecified asthma with (acute) exacerbation; E66.9 Obesity, unspecified
CPT/HCPCS: 36415; 80053; 93005; 99284; 71046; 83735; 84484; 85025; 93010; 99285

== ENCOUNTER → 2022-07-28 01:38 | Outpatient (CLI) | payer MEDICARE, SELFPAY ==
--- NOTE | 2022-07-28 07:00 | DI.NM_ITS ---
APPROVED REPORT Exam: Exercise Treadmill Patient Location: Out-Patient Room/Bed: Stress Nurse: Cherise Sheffield RN Ordering Provider:LUISA MEDEROS, Contact Number: [phone] BMI: 40.96 Baseline Rhythm: Sinus Rhythm Comment: T wave inversion, lead III Indications: Chest Pain Medical History Medical History: Hypothyroid, depression, hiatal hernia, sleep apnea, HTN, Anxiety, spinal stenosis, hip pain, neck pain, DDD, back pain Cardiac Medications: HTZ, Levothyroxine Allergies: Meloxicam Cardiac Risk Factors: +Family history, HTN, Obesity Previous Cardiac Procedures: None Pretest Chest Pain Characteristics: None Exercise History: Indeterminate Physical Disabilities: None Heart Sounds: Regular Stress Test Details Test: Exercise stress testing was performed using a Marco Antonio protocol. Nuclear Acquisition: Rest Tc-99m/Stress Tc-99m 1 day Rest Isotope: Tc-99m Sestamibi. Dose: 10 Date: 07/28/2022 Injection Time: 0845 Stress Isotope: Tc-99m Sestamibi. Dose: 32.2 Date: 07/28/2022 Injection Time: 1018 HR Resting HR Supine: 65 bpm Max Heart Rate (APMHR): 150.979365 bpm Resting HR Standin bpm Target HR (85% APMHR): 127.976263 bpm Max HR Achieved: 140 bpm % of APMHR: 93.33 Recovery HR: 82 bpm HR response to stress: Normal HR response to stress BP Resting BP Supine: 132/60 mmHg Resting BP Standin/64 mmHg Max BP: 178/58 mmHg Recovery BP: 118/62 mmHg BP response to stress: Normal blood pressure response to stress. ECG Resting ECG: Sinus Rhythm Ectopy: None Comment: T wave inversion, lead III Stress ECG: Sinus Tachycardia ST Change: No significant ST segment changes noted Arrhythmia: Couplet x2 Recovery ECG: Sinus Rhythm Recovery ST Change: No significant ST segment changes noted, Downsloping ST depression Lead(s): II, III, aVF Recovery ST Deviation: 0.5-1 mm Recovery Arrhythmia: None Clinical Reason for Termination: Fatigue Stress Symptoms: General Fatigue Exercise duration: 6 min17 sec Highest Stage Reached: Stage 3: 3.4 mph at 14% grade. Exercise capacity: 7.45 METs Angina Score: None Farooq Treadmill Score: 5.2 Rate Pressure Product: [id number] Stress ECG Conclusion 1. Resting electrocardiogram was within normal limits 2. Patient exercised on the Marco Antonio protocol and completed a workload of 7.45 METS stopping due to fati frank 3. Normal heart rate and blood pressure response to exercise. Patient achieved 93% of predicted hear t rate for age 4. The electrocardiographic portion of the test was nondiagnostic due to artifact 5. There were no significant dysrhythmias 6. See MPI report Farooq Treadmill Score is 5.2 which is Low risk. Stress Test Summary STAGE Time (mins) Speed (mph) Grade (%) HR BP SpO2 SYMPTOMS METS Supine 65 132/60 Standing 77 136/64 96% 1 3 1.7 10 120 152/78 4.5 2 6 2.5 12 135 160/72 93% 7 3 9 3.4 14 136 10 1 min recovery 117 178/53 3 min recovery 86 140/56 98% 6 min recovery 82 118/62 MPI Conclusion Myocardial l perfusion is normal without evidence of ischemia or prior infarction EF 70%, normal wall motion Radiologist Interpretation Radiologist agrees with Bar Machine Operator's Interpretation. Radiologist Interpretation by: Claudia Holland MD Interpretation Date/Time: 07/28/2022 16:37:30
== END ==
PROVIDERS: PCP Family Medicine; Visit Provider Family Medicine
DX: R07.9 Chest pain, unspecified (principal)
CPT/HCPCS: 78452; 93016; 93018; 93017

== ENCOUNTER 2022-12-03 09:23 | Outpatient (CLI) | payer MEDICARE, SELFPAY ==
--- NOTE | 2022-12-03 09:15 | RT.EKG_ITS ---
APPROVED REPORT Exam: Resting ECG Reason for Exam: pneumonia Patient Location: O HR:64 bpm ECG Measurements Heart Rate 64 AXIS MO 172 P 33 QRSd 101 QRS 14 QT 421 T 63 QTc 435 Conclusion Sinus rhythm...normal P axis, V-rate 50- 99 Normal Electrocardiogram
== END 2022-12-03 09:24 | disposition home or self-care (01) ==
LOC: DI.CM 09:28
PROVIDERS: PCP Family Medicine; Visit Provider Nurse Practitioner Family
DX: J18.9 Pneumonia, unspecified organism (principal); R07.9 Chest pain, unspecified
CPT/HCPCS: 93010

== ENCOUNTER 2022-12-03 11:48 | Outpatient (CLI) | payer MEDICARE, SELFPAY ==
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
== END 2022-12-03 12:08 ==
PROVIDERS: PCP Family Medicine; Visit Provider Nurse Practitioner Family
DX: R05.8 Other specified cough (principal)
CPT/HCPCS: 71046

== ENCOUNTER 2023-03-03 03:02 | Outpatient (CLI) | payer MEDICARE, SELFPAY ==
[2023-03-03 10:49] LABS: HGB 14.3 g/dL (11.2-15.7); MCH 29.9 pg (27.0-33.0); MCHC 33.3 % (32.0-36.0); MCV 90 fL (80-95); MPV 9.1 fL (8.0-11.0); Platelet Count 321 10^3/uL (130-400); RBC 4.79 10^6/uL (3.93-5.22); RDW 12.5 % (11.7-14.6); RDW-SD 41.5 fL; WBC 5.91 10^3/uL (4.4-10.8)
[2023-03-03 11:33] LABS: ALT 33 U/L (14-59); AST 22 U/L (15-37); Albumin 3.8 g/dL (3.4-5.0); Alkaline Phosphatase 151 U/L (46-116); BUN 25 mg/dL (7-18); Bilirubin, Total 0.4 mg/dL (0.2-1.0); Calcium 9.2 mg/dL (8.5-10.1); Chloride 102 mmol/L (98-107); Estimated GFR 60.23 (mL/min/1.73m2); Glucose 103 mg/dL (74-106); Potassium 3.5 mmol/L (3.5-5.1); Sodium 142 mmol/L (136-145); TSH (W/Ref FT4) 2.12 uIU/mL (0.36-3.74); Total Protein 7.4 g/dL (6.4-8.2)
== END 2023-03-03 03:03 | disposition home or self-care (01) ==
LOC: LOS 03:02
PROVIDERS: PCP Family Medicine; Visit Provider Family Medicine
DX: I10 Essential (primary) hypertension (principal); R00.2 Palpitations
CPT/HCPCS: 36415; 80053; 85027; 84443

== ENCOUNTER 2023-03-08 19:28 | Emergency (ER) | payer MEDICARE, SELFPAY ==
[2023-03-08] VITALS (23 sets, daily range): BP systolic 115–144; BP diastolic 49–79; PULSE 59–82; RESP 9–20; O2SAT 93–98
--- NOTE | 2023-03-08 19:30 | RT.EKG_ITS ---
APPROVED REPORT Exam: Resting ECG Reason for Exam: Palpitations Patient Location: E HR:82 bpm ECG Measurements Heart Rate 82 AXIS AL 159 P 42 QRSd 94 QRS 17 QT 384 T 25 QTc 448 Conclusion Sinus rhythm...normal P axis, V-rate 60- 99 sinus rhythm, normal axis, normal intervals, non ischemic
[2023-03-08 20:02] LABS: Abs Immature Grans 0.02 10^3/uL (0.0-0.06); Absolute Basophil Count 0.08 10^3/uL (0.0-0.2); Absolute Eosinophil Count 0.33 10^3/uL (0.0-0.7); Absolute Lymphocyte Count 1.61 10^3/uL (1.2-3.4); Absolute Monocyte Count 0.59 10^3/uL (0.1-0.8); Absolute Neutrophil Count 3.57 10^3/uL (1.2-6.7); Basophils % 1.3; Eosinophils % 5.3; HCT 41.8 % (36.0-46.0); HGB 13.6 g/dL (11.2-15.7); Immature Grans % 0.3; MCH 29.5 pg (27.0-33.0); MCHC 32.5 % (32.0-36.0); MCV 91 fL (80-95); MPV 9.4 fL (8.0-11.0); Monocytes % 9.5; Neutrophils % 57.6; Platelet Count 318 10^3/uL (130-400); RBC 4.61 10^6/uL (3.93-5.22); RDW 12.7 % (11.7-14.6); RDW-SD 41.8 fL
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
[2023-03-08 20:38] LABS: ALT 31 U/L (14-59); AST 21 U/L (15-37); Albumin 3.6 g/dL (3.4-5.0); Alkaline Phosphatase 156 U/L (46-116); Anion Gap 7.9 mmol/L (3-11); BUN 28 mg/dL (7-18); Bilirubin, Total 0.3 mg/dL (0.2-1.0); CO2 29.1 mmol/L (21.0-32.0); CREATININE 1.2 mg/dL (0.55-1.02); Calcium 8.9 mg/dL (8.5-10.1); Chloride 109 mmol/L (98-107); Estimated GFR 48.39 (mL/min/1.73m2); Glucose 58 mg/dL (74-106); Magnesium 2.1 mg/dL (1.8-2.4); Potassium 3.2 mmol/L (3.5-5.1); Sodium 146 mmol/L (136-145); Total Protein 6.9 g/dL (6.4-8.2)
--- NOTE | 2023-03-09 08:43 | NUR.NOTE ---
Nursing Note: Accessed chart to determine orders for EKG and to determine whether or not one needs to be cancelled.
== END 2023-03-08 22:12 | disposition home or self-care (01) ==
PROVIDERS: Emergency Provider Emergency Medicine; PCP Family Medicine
DX: E16.2 Hypoglycemia, unspecified; E87.0 Hyperosmolality and hypernatremia
CPT/HCPCS: 36415; 80053; 93005; 99283; 83735; 85025; 93010

== ENCOUNTER 2023-03-09 13:06 | Outpatient (CLI) | payer MEDICARE, SELFPAY ==
[2023-03-09 13:18] LABS: HCT 40.9 % (36.0-46.0); HGB 13.6 g/dL (11.2-15.7); MCHC 33.3 % (32.0-36.0); MCV 90 fL (80-95); MPV 9.4 fL (8.0-11.0); Platelet Count 312 10^3/uL (130-400); RBC 4.54 10^6/uL (3.93-5.22); RDW 12.7 % (11.7-14.6); RDW-SD 41.5 fL; WBC 5.42 10^3/uL (4.4-10.8)
[2023-03-10 15:16] LABS: ANA Interpretation Positive (Negative); ANA Titer Pattern 1:160 Homogeneous
[2023-03-13 15:52] LABS: RNP Ab, IgG 2.2 Units (<20.0); SS-A Antibody 1.6 Units (<20.0); SS-B (La) Ab, IgG 2.2 Units (<20.0); Sm (Smith) Ab, IgG 2.6 Units (<20.0)
== END 2023-03-09 13:07 | disposition home or self-care (01) ==
PROVIDERS: PCP Family Medicine; Visit Provider Dermatology
DX: M32.10 Systemic lupus erythematosus, organ or system involvement unspecified (principal)
CPT/HCPCS: 36415; 85027; 86038; 86235

== ENCOUNTER 2023-03-12 00:45 | Outpatient (CLI) | payer MEDICARE, SELFPAY ==
--- NOTE | 2023-03-12 06:45 | DI.US_ITS ---
APPROVED REPORT EXAM: Comprehensive 2D, Doppler, and color-flow Echocardiogram Patient Location: Out-Patient Steel Post Installer: Tin Barrera RDMS, RVT Indications: SOB, Palpitations Other Information Study Quality: Adequate Conclusion Normal left ventricular wall thickness and chamber size. Ejection fraction is 65%. Wall motion is n ormal Normal right ventricular size and systolic function Left atrium is mildly dilated. Right atrial size is normal There is no structural or hemodynamically significant valvular disease Estimated right ventricular systolic pressure is 19 mmHg Wall motion Left Ventricle The left ventricle is normal size. The left ventricular systolic function is normal. The left ventric ular ejection fraction is within the normal range. There is normal left ventricular wall thickness. T here is normal LV segmental wall motion. There is no ventricular septal defect visualized. LVEF is 65 %. Right Ventricle The right ventricle is normal size. The right ventricular systolic function is normal. The RVSP is 19 .0 mmHg. Atria Left atrium is mildly dilated. The right atrium size is normal. The interatrial septum is intact wit h no evidence for an atrial septal defect. Aortic Valve The aortic valve is normal in structure. Aortic valve is trileaflet. There is no aortic valvular sten osis. No aortic regurgitation is present. Mitral Valve Mild mitral annular calcification. No evidence of mitral valve stenosis. Trace mitral regurgitation. Tricuspid Valve The tricuspid valve is normal in structure. There is no tricuspid valve stenosis. Trace to mild tricu spid regurgitation. Pulmonic Valve The pulmonary valve is normal in structure. There is no pulmonic valvular stenosis. Trace pulmonic re gurgitation. Great Vessels The aortic root is normal in size. The ascending aorta is normal in size. Aortic arch is normal in ca liber. IVC is normal in size and collapses >50% with inspiration. Pericardium There is no pericardial effusion. 2D Dimensions IVSD d PLAX 0.69 cm F: 0.6-1.0 LV Vol A2C d MOD 126.4 mL LVPW d PLAX 0.69 cm F: 0.6 - 1.0 LV Vol A4C d MOD 130.4 mL LVID d PLAX 4.51 cm F: 3.8 - 5.2 LA vol/ BSA A4C s A-L 44.7 mL/m2 LVDs 2.80 cm F: 2.2 - 3.5 LA Area A4C s MOD 25.06 cm2 Ao Root d 2.61 cm F: 2.7 - 3.3 LV EF A4C MOD 66.4 % Ao Asc Diam d 2.87 cm F: 2.3 - 3.1 LV EF A2C MOD 65.5 % LV EF Teichholz 67.6 % LV EF Biplane MOD 67.0 % LVEF (Wright's) 66.96 % F: 54 - 74 SV 91.88 mL LV Volume 102.74 mL F: 46 - 106 SV Index 45.72 mL/m2 LV Volume Index 51.11 mL/m2 F: 29 - 61 LV Vol Biplane MOD 137.2 mL FS 37.45 % M-Mode TAPSE 1.79 cm (M/F) >1.7 LV Diastology MV E' medial 0.108 (>0.07 m/s) E/A Ratio 0.7 LV E/e MED 6.15 (<14) MV E Vmax 0.67 (0.4-1.3 m/s) MV E' lateral 0.121 (>0.1 m/s) MV A Vmax 0.90 (0.4-1.3 m/s) LV E/e LAT 5.50 (<14) MV E/A Ratio 0.73 MV E/E' medial 6.19 MV E/E' lateral 5.51 Aortic Valve LVOT Area 3.11 cm2 AoV Area Vmax 2.45 cm2 LVOT Vmax 1.02 m/s AoV Area/ BSA (Vmax) 1.22 cm2/m2 LVOT Mean Romario. 0.69 m/s DESTINY Mean Romario. 2.26 cm2 LVOT Peak Grad 4.2 mmHg DESTINY Mean Romario. Index 1.13 cm2/m2 LVOT Mean Grad 2.2 mmHg LVOT VTI 0.276 m LVOT Diam s 1.95 cm AoV Vmax 1.30 m/s Velocity Ratio 0.78 AoV Mean Romario. 0.95 m/s AoV Peak Grad 6.7 mmHg LVOT SV 85.67 mL AoV Mean Grad 3.9 mmHg AoV VTI 0.284 m AoV Area VTI 3.02 cm2 AoV Area/ BSA (VTI) 1.50 cm/m2 Mitral Valve MV DT 178 (160-240 msec) MV PHT 52 msec MV Area PHT 4.26 cm2 MV VTI 0.229 m MV Area VTI 3.74 (4.0-6.0 cm2) Pulmonary Valve PV Vmax 1.02 (0.5-1.5 m/s) RVOT Peak Gr. 1.41 mmHg PV Peak Grad 4.1 mmHg RVOT Mean Gr. 0.80 mmHg PV Mean Grad 2.4 mmHg RVOT VTI 0.165 m PV VTI 0.212 m RVOT Vmax 0.59 m/s Tricuspid Valve TR Peak Grad 15.9 mmHg TR Vmax 2.00 m/s RA Pressure 3.00 mmHg RVSP (TR) 19.0 mmHg
== END 2023-03-12 01:05 ==
LOC: DI 00:45
PROVIDERS: PCP Family Medicine; Visit Provider Family Medicine
DX: R00.2 Palpitations (principal)
CPT/HCPCS: 93306

== ENCOUNTER 2023-03-20 00:20 | Outpatient (CLI) | payer MEDICARE, SELFPAY ==
--- NOTE | 2023-03-20 07:35 | DI.RAD_ITS ---
Exam(s) XR KNEE LT 3V AP,LAT,GUCCI EXAM: XR KNEE LT 3V AP,LAT,GUCCI CLINICAL HISTORY: acutely worse overnight, no specific trauma,lt knee pain,m25.562,s/p fall. TECHNIQUE: 2D digital imaging was performed. Three views. COMPARISON: CR XR KNEE RT 3V AP,LAT,GUCCI from 03/20/2023 FINDINGS: BONES: No acute fracture is present. No bony destructive lesion is seen. JOINTS: Severe narrowing of the medial femoral tibial joint space. Prominent periarticular spurring. Spurring also noted at tibial spines and femoral intercondylar notch as well as patellofemoral join t. These a fight at quadriceps insertion. No joint effusion is seen. SOFT TISSUE: Normal. IMPRESSION: degenerative changes of the medial femoral tibial joint. DATA REPOSITORY: RADIATION DOSE DELIVERED:
--- NOTE | 2023-03-20 07:48 | DI.RAD_ITS ---
Exam(s) XR KNEE RT 3V AP,LAT,GUCCI EXAM: XR KNEE RT 3V AP,LAT,GUCCI CLINICAL HISTORY: s/p fall,rt knee pain, m25.569. TECHNIQUE: 2D digital imaging was performed. Three views. COMPARISON: CR XR KNEE LT 3V AP,LAT,GUCCI from 03/18/2022 FINDINGS: BONES: No acute fracture is present. No bony destructive lesion is seen. JOINTS: Mild narrowing of the medial femoral tibial joint. Paratracheal spurring noted throughout, g reatest at the patellofemoral joint. No joint effusion is seen. SOFT TISSUE: Normal. IMPRESSION: Dalf-dz-jxtziumw degenerative changes. DATA REPOSITORY: RADIATION DOSE DELIVERED:
== END 2023-03-20 00:40 ==
LOC: DI 00:20
PROVIDERS: PCP Family Medicine; Visit Provider Nurse Practitioner Family
DX: M17.12 Unilateral primary osteoarthritis, left knee (principal); M25.562 Pain in left knee
CPT/HCPCS: 73562

== ENCOUNTER 2023-05-13 09:41 | Outpatient (CLI) | payer MEDICARE, SELFPAY ==
[2023-05-13 09:17] LABS: ALT 33 U/L (14-59); AST 25 U/L (15-37); Albumin 3.4 g/dL (3.4-5.0); Alkaline Phosphatase 130 U/L (46-116); Anion Gap 10.1 mmol/L (3-11); BUN 21 mg/dL (7-18); Bilirubin, Total 0.4 mg/dL (0.2-1.0); CO2 30.9 mmol/L (21.0-32.0); CREATININE 0.9 mg/dL (0.55-1.02); Calcium 8.6 mg/dL (8.5-10.1); Calculated LDL 75 mg/dL (<100); Chloride 105 mmol/L (98-107); Cholesterol 164 mg/dL (<200); Estimated GFR 68.35 (mL/min/1.73m2); Glucose 82 mg/dL (74-106); HDL Cholesterol 79 mg/dL (40-60); Potassium 3.6 mmol/L (3.5-5.1); Sodium 146 mmol/L (136-145); TSH (W/Ref FT4) 3.16 uIU/mL (0.36-3.74); Total Protein 6.9 g/dL (6.4-8.2); Triglyceride 54 mg/dL (<150)
[2023-05-13 09:38] LABS: Iron 58 ug/dL (50-170)
[2023-05-13 11:20] LABS: Hemoglobin A1C 5.3 % (<5.7)
== END 2023-05-13 09:42 | disposition home or self-care (01) ==
LOC: LBO 09:43
PROVIDERS: PCP Family Medicine; Visit Provider Family Medicine
DX: I10 Essential (primary) hypertension (principal); E11.9 Type 2 diabetes mellitus without complications; E03.9 Hypothyroidism, unspecified; E87.0 Hyperosmolality and hypernatremia; F41.8 Other specified anxiety disorders
CPT/HCPCS: 36415; 80053; 80061; 83036; 83540; 84443

== ENCOUNTER → 2023-07-22 01:12 | Outpatient (CLI) | payer MEDICARE, SELFPAY ==
--- NOTE | 2023-07-22 06:30 | DI.RAD_ITS ---
Exam(s) XR HIP RT COMPLETE AP PELVIS EXAM: XR HIP RT COMPLETE AP PELVIS CLINICAL HISTORY: low back and rt hip pain, m25.551. TECHNIQUE: 2D digital imaging was performed. COMPARISON: No exams were available for comparison FINDINGS: Two views: No evidence of pelvic nor hip fracture. Some dystrophic calcifications noted above both greater troc hanters. Also evidence of osteitis symphysis pubis. No significant osseous lesions. No hip joint s pace narrowing. Additional view of the right hip reveals no evidence of osteophytes. IMPRESSION: No hip joint degenerative changes. Osteitis symphysis pubis noted. DATA REPOSITORY: RADIATION DOSE DELIVERED:
--- NOTE | 2023-07-22 06:30 | DI.RAD_ITS ---
Exam(s) XR LUMBAR SPINE COMPLETE EXAM: XR LUMBAR SPINE COMPLETE CLINICAL HISTORY: low back and rt hip pain,m54.5. TECHNIQUE: 2D digital imaging was performed. Five views. COMPARISON: CR XR LUMBAR SPINE COMPLETE from 05/11/2020 FINDINGS: BONES: No fracture or destructive lesion. Vertebral body heights are maintained. Prominent endplate osteophytes project in anteriorly and toward the right greater in the lower thoracic levels. Promine nt facet hypertrophy identified, greatest at L4-5 and L5-S1. DISKS: Stable moderate disc space narrowing at L4-5 and L5-S1. The remaining intervertebral disc spa scooter are maintained. ALIGNMENT: Lumbar spinal alignment is within normal limits. SOFT TISSUE: Normal. IMPRESSION: Stable appearance of degenerative changes greatest at L4-5 and L5-S1. DATA REPOSITORY: RADIATION DOSE DELIVERED:
--- NOTE | 2023-07-22 06:30 | DI.MAMMO_ITS ---
Exam(s) MAMMO SCREENING EXAM: MAMMO SCREENING CLINICAL HISTORY: screening,z12.39. TECHNIQUE: Bilateral full field digital CC and MLO mammographic images were obtained with 3D tomosyn thesis and utilizing computer aided detection (CAD). COMPARISON: Prior mammograms were reviewed. FINDINGS: There has been no significant change in the appearance and distribution of the fibroglandular tissue. There are no new spiculated masses nor malignant appearing microcalcification groups. There is no significant architectural distortion nor skin thickening-retraction. IMPRESSION: No radiographic evidence of malignancy. BI-RADS Category 1 - Negative Breast Density - Category A - Almost entirely fatty Breast density Category C or D implies that the patient has dense breast tissue. Dense breast tissue can make it harder to find cancer on a mammogram. Dense breast tissue is also associated with an incr eased risk of breast cancer. This information about the result of the mammogram report was provided to the patient to raise their awareness. Use this report when you speak with the patient about their risks for breast cancer, which includes their family history. At that time, you may recommend additional screening tests (Ultrasoun d or MRI) as these tests may add significant information. A negative radiographic report should not delay biopsy if a dominant or clinically suspicious mass is present. Up to ten percent of cancers are not identified on mammography. A negative report may reinforce clinical impression. Adenosis and dense breasts may obscure an underlying neoplasm. False positive reports average 6 to 10%. Patient will receive a letter notifying them of these results.
== END ==
PROVIDERS: PCP Family Medicine; Visit Provider Family Medicine
DX: Z12.39 Encounter for other screening for malignant neoplasm of breast (principal); M25.551 Pain in right hip; M54.50 Low back pain, unspecified
CPT/HCPCS: 77063; 77067; 72110; 73502

== ENCOUNTER → 2023-09-04 08:09 | Outpatient (BNVA) | payer MEDICARE, SELFPAY | PROVIDERS: PCP Family Medicine; Referring Provider Family Medicine; Visit Provider Student in an Organized Health Care Education/Training Program | DX: M17.12 Unilateral primary osteoarthritis, left knee (principal) | CPT/HCPCS: 20610; 99213; J1040 ==

== ENCOUNTER 2023-10-26 09:19 | Outpatient (CLI) | payer MEDICARE, SELFPAY ==
--- NOTE | 2023-10-26 09:15 | RT.EKG_ITS ---
APPROVED REPORT Exam: Resting ECG Reason for Exam: heart palpatations Patient Location: O HR:63 bpm ECG Measurements Heart Rate 63 AXIS MO 166 P 12 QRSd 94 QRS 9 QT 412 T 27 QTc 422 Conclusion Sinus rhythm...normal P axis, V-rate 50- 99 Probable left atrial enlargement...P >50mS, <-0.10mV V1 I have reviewed and interpreted ECG and agree with software generated interpretation.
== END 2023-10-26 09:20 | disposition home or self-care (01) ==
LOC: DI.CM 09:20
PROVIDERS: PCP Family Medicine; Visit Provider Nurse Practitioner Family
DX: R00.2 Palpitations (principal)
CPT/HCPCS: 93010

== ENCOUNTER 2023-10-26 09:37 | Outpatient (CLI) | payer MEDICARE, SELFPAY ==
[2023-10-26 12:43] LABS: Abs Immature Grans 0.01 10^3/uL (0.0-0.06); Absolute Basophil Count 0.08 10^3/uL (0.0-0.2); Absolute Eosinophil Count 0.38 10^3/uL (0.0-0.7); Absolute Lymphocyte Count 0.81 10^3/uL (1.2-3.4); Absolute Monocyte Count 0.39 10^3/uL (0.1-0.8); Absolute Neutrophil Count 2.88 10^3/uL (1.2-6.7); Basophils % 1.8; Eosinophils % 8.4; HCT 40.4 % (36.0-46.0); HGB 13.5 g/dL (11.2-15.7); Immature Grans % 0.2; Lymphocytes % 17.8; MCH 30.1 pg (27.0-33.0); MCHC 33.4 % (32.0-36.0); MCV 90 fL (80-95); MPV 9.8 fL (8.0-11.0); Monocytes % 8.6; Neutrophils % 63.2; Platelet Count 290 10^3/uL (130-400); RBC 4.48 10^6/uL (3.93-5.22); RDW 12.7 % (11.7-14.6); RDW-SD 41.6 fL; WBC 4.55 10^3/uL (4.4-10.8)
[2023-10-26 13:10] LABS: ALT 26 U/L (14-59); AST 22 U/L (15-37); Albumin 3.7 g/dL (3.4-5.0); Alkaline Phosphatase 115 U/L (46-116); Anion Gap 8.2 mmol/L (3-11); BUN 20 mg/dL (7-18); Bilirubin, Total 0.5 mg/dL (0.2-1.0); CO2 30.8 mmol/L (21.0-32.0); CREATININE 0.9 mg/dL (0.55-1.02); Calcium 9.3 mg/dL (8.5-10.1); Chloride 104 mmol/L (98-107); Estimated GFR 68.35 (mL/min/1.73m2); Glucose 103 mg/dL (74-106); Magnesium 2.3 mg/dL (1.8-2.4); Potassium 3.6 mmol/L (3.5-5.1); Sodium 143 mmol/L (136-145); Troponin I < 50 ng/L (<or=60)
== END 2023-10-26 09:38 | disposition home or self-care (01) ==
LOC: LOS 09:37
PROVIDERS: PCP Family Medicine; Referring Provider Nurse Practitioner Family; Visit Provider Nurse Practitioner Family
DX: R00.2 Palpitations (principal)
CPT/HCPCS: 36415; 80053; 83735; 84484; 85025

== ENCOUNTER 2023-11-11 07:28 | Emergency (ER) | payer MEDICARE, SELFPAY ==
[2023-11-11] VITALS (35 sets, daily range): BP systolic 108–135; BP diastolic 45–64; PULSE 55–71; RESP 8–20; TEMP 36.3; O2SAT 96–100
--- NOTE | 2023-11-11 07:30 | DI.CT_ITS ---
Exam(s) CT HEAD WO EXAM: CT HEAD WO CLINICAL HISTORY: dizzy. TECHNIQUE: Imaging Protocol: Axial computed tomography images with coronal and sagittal reformatted images were created and reviewed COMPARISON: No exams were available for comparison FINDINGS: Ventricles and Extra axial spaces: Normal in size and morphology for the patient's age. Hemorrhage: None. Cerebral parenchyma: No evidence of acute infarct or mass. Midline shift: None. Brainstem/Cerebellum: Normal. Calvarium: Normal. Visualized Paranasal sinuses/Mastoids: Clear. Soft Tissues: Unremarkable. IMPRESSION: No acute intracranial process. RADIATION DOSE DELIVERED: Total DLP DATA REPOSITORY: All CT scans at this facility are submitted to the National Radiology Data Registry (NRDR) Dose Index Registry (DIR) with the [employer] (A[employer]). RADIATION OPTIMIZATION: All CT scans at this facility use at least one of these dose optimization te chniques: automated exposure control; mA and/or kV adjustment per patient size (includes targeted exa ms where dose is matched to clinical indication); or iterative reconstruction.
--- NOTE | 2023-11-11 07:30 | RT.EKG_ITS ---
APPROVED REPORT Exam: Resting ECG Reason for Exam: dizzy Patient Location: E HR:57 bpm ECG Measurements Heart Rate 57 AXIS TN 192 P 32 QRSd 97 QRS 4 QT 448 T 31 QTc 437 Conclusion Sinus bradycardia...rate< 60 Inferior infarct, old...Q >35mS, II III aVF
[2023-11-11 07:52] LABS: Abs Immature Grans 0.01 10^3/uL (0.0-0.06); Absolute Basophil Count 0.07 10^3/uL (0.0-0.2); Absolute Eosinophil Count 0.49 10^3/uL (0.0-0.7); Absolute Monocyte Count 0.62 10^3/uL (0.1-0.8); Absolute Neutrophil Count 4.48 10^3/uL (1.2-6.7); Eosinophils % 7.3; HCT 40.5 % (36.0-46.0); HGB 13.5 g/dL (11.2-15.7); Immature Grans % 0.1; MCH 30.3 pg (27.0-33.0); MCHC 33.3 % (32.0-36.0); MCV 91 fL (80-95); MPV 9.7 fL (8.0-11.0); Monocytes % 9.3; Neutrophils % 67.3; Platelet Count 273 10^3/uL (130-400); RBC 4.46 10^6/uL (3.93-5.22); RDW 12.8 % (11.7-14.6); RDW-SD 42.2 fL; WBC 6.67 10^3/uL (4.4-10.8)
[2023-11-11 08:09] LABS: ALT 26 U/L (14-59); AST 21 U/L (15-37); Albumin 3.4 g/dL (3.4-5.0); Alkaline Phosphatase 106 U/L (46-116); Anion Gap 9.9 mmol/L (3-11); BUN 23 mg/dL (7-18); Bilirubin, Total 0.4 mg/dL (0.2-1.0); CO2 30.1 mmol/L (21.0-32.0); CREATININE 0.9 mg/dL (0.55-1.02); Calcium 8.6 mg/dL (8.5-10.1); Chloride 104 mmol/L (98-107); Estimated GFR 67.92 (mL/min/1.73m2); Glucose 100 mg/dL (74-106); Magnesium 2.2 mg/dL (1.8-2.4); Potassium 3.1 mmol/L (3.5-5.1); Sodium 144 mmol/L (136-145); Total Protein 6.6 g/dL (6.4-8.2); Troponin I < 50 ng/L (<or=60)
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
[2023-11-11] MEDS: Potassium Chloride 20 MEQ TABCR PO (08:59)
[2023-11-11] MEDS: POTASSIUM CHLORIDE 20 MEQ/100 ML BAG 50 MEQ IVPB (08:59)
[2023-11-11] MEDS: Normal Saline 500 ML 1000 ML IV (08:59)
[2023-11-11] MEDS: Normal Saline Flush 10 ML SYR IVP (08:59)
[2023-11-11] MEDS: Ibuprofen 200 MG TAB PO (09:33)
[2023-11-11] MEDS: Acetaminophen 325 MG TAB 650 MG PO (09:33)
[2023-11-11 09:47] LABS: TSH (W/Ref FT4) 3.39 uIU/mL (0.36-3.74)
--- NOTE | 2023-11-11 10:22 | DI.VRAD_ITS ---
PROCEDURE INFORMATION: Exam: CT Head Without Contrast Exam date and time: 11/11/2023 7:54 AM Age: 73 years old Clinical indication: Injury or trauma; Blunt trauma (contusions or hematomas); Patient HX: Fall 11/11/23 in early am TECHNIQUE: Imaging protocol: Computed tomography of the head without contrast. COMPARISON: CT CERVICAL SPINE WITHOUT CONTRA 03/23/2017 8:07 PM FINDINGS: Brain: No evidence of acute infarct. No intraparenchymal hemorrhage. No midline shift or mass effect. No extra-axial fluid collections or hemorrhage. Cerebral ventricles: No ventriculomegaly. Paranasal sinuses: Visualized sinuses are unremarkable. No fluid levels. Mastoid air cells: Visualized mastoid air cells are well aerated. Bones/joints: Unremarkable. No acute fracture. Soft tissues: Unremarkable. IMPRESSION: No acute intracranial abnormality. Dictated and Authenticated by: Kevin Dos Santos MD. Ordering:CELSO Duque MD
[2023-11-11 10:49] LABS: Troponin I < 50 ng/L (<or=60)
--- NOTE | 2023-11-11 11:15 | DI.RAD_ITS ---
Exam(s) XR CHEST 2V PA LATERAL EXAM: XR CHEST 2V PA LATERAL CLINICAL HISTORY: syncope TECHNIQUE: 2D digital imaging was performed. COMPARISON: No exams were available for comparison FINDINGS: HEART: Normal size. Aorta: Not dilated. PULMONARY VASCULATURE: Normal. LUNGS: Clear. Calcified right paratracheal lymph node again noted. PLEURAL SPACE: No pleural effusion or pneumothorax. BONE:Unremarkable for age. Soft tissues: Unremarkable. IMPRESSION: No acute abnormality. DATA REPOSITORY: RADIATION DOSE DELIVERED:
== END 2023-11-11 12:01 | disposition home or self-care (01) ==
PROVIDERS: Emergency Provider Student in an Organized Health Care Education/Training Program; PCP Family Medicine
DX: R55 Syncope and collapse (principal); E86.0 Dehydration; E87.6 Hypokalemia; I10 Essential (primary) hypertension; E03.9 Hypothyroidism, unspecified; R00.1 Bradycardia, unspecified; Z98.84 Bariatric surgery status; Z79.899 Other long term (current) drug therapy; W18.39XA Other fall on same level, initial encounter; Y93.E8 Activity, other personal hygiene; Y92.012 Bathroom of single-family (private) house as the place of occurrence of the external cause
CPT/HCPCS: 36415; 80053; 93005; 96365; 96366; 99284; 70450; 71046; 83735; 84443; 84484; 85025; 93010; J3480

== ENCOUNTER → 2023-11-18 01:06 | Outpatient (CLI) | payer MEDICARE, SELFPAY ==
--- NOTE | 2023-11-18 07:00 | DI.MRI_ITS ---
Exam(s) MR LUMBAR SPINE WO EXAM: MR LUMBAR SPINE WO CLINICAL HISTORY: bilat low back pain not resolved with months of PT,M54.5. TECHNIQUE: Multiplanar multisequence MRI of the Lumbar spine was performed. COMPARISON: MR MRI - LUMBAR SPINE WO CONTRAST from 04/18/2010 CT CHEST ABD PELVIS WITH CONTRAST from 03/23/2017 CR XR LUMBAR SPINE COMPLETE from 07/22/2023 FINDINGS: Bones: The last intervertebral disc space is designated the L5/S1 level for the numbering purpose of this examination. The vertebral body heights are well maintained. Alignment is satisfactory. The si gnal characteristics are unremarkable. There are endplate osteophytes seen at several levels of the l ower thoracic and lumbar spine. There are degenerative endplate signal changes seen at L5-S1. Cord: The conus tip ends at the T12 level. It is of normal size and signal intensity. T12-L1: No disc herniations or bulges are present. No central spinal canal or neural foraminal stenos is. L1-2: No disc herniations or bulges are present. No central spinal canal or neural foraminal stenosis . L2-3: No disc herniations or bulges are present. No central spinal canal or neural foraminal stenosis .There are degenerative changes of the facets. L3-4: There is a diffuse disc bulge. There is a right-sided disc herniation. There is also facet ar thropathy present. There is a synovial cyst seen predominantly in the midline measuring 9 mm AP x 6 mm transverse by 12 cm craniocaudad. This in conjunction with the degenerative changes causes marked central spinal canal stenosis. There is right lateral recess stenosis compressing the right L4 nerv e root. There is moderate right neural foraminal stenosis. No significant left neural foraminal pam nosis. L4-5: No disc herniations or bulges are present. There are degenerative changes of the facets present . No significant central spinal canal stenosis is seen.There is mild right neural foraminal stenosis . No significant left neural foraminal stenosis. L5-S1: There is a mild diffuse disc bulge. There are degenerative changes of the facets. No signifi cant central spinal canal stenosis is seen. There is moderate right and mild left neural foraminal s tenosis. Soft tissues: The visualized SI joints and sacrum are well maintained. The paraspinal soft tissues ar e unremarkable. Visualized abdominal organs: There is a 1.2 cm simple cyst in the right kidney. This is consistent w ith a Bosniak 1 type cyst. No follow-up is recommended. IMPRESSION: 1. At L3-L4, there is a right-sided disc herniation causing right lateral recess stenosis and breezy martir of the right L4 nerve root. There is also synovial cyst and degenerative changes which all cont ribute to cause marked central spinal canal stenosis. There is also moderate right neural foraminal stenosis. 2. Multilevel degenerative changes in the lumbar spine resulting in neural foraminal stenosis as desc ribed above. DATA REPOSITORY:
== END ==
PROVIDERS: PCP Family Medicine; Visit Provider Nurse Practitioner Family
DX: M54.59 Other low back pain (principal); M51.16 Intervertebral disc disorders with radiculopathy, lumbar region; M48.061 Spinal stenosis, lumbar region without neurogenic claudication
CPT/HCPCS: 72148

== ENCOUNTER → 2024-01-11 10:08 | Outpatient (BNVA) | payer MEDICARE, SELFPAY | PROVIDERS: PCP Family Medicine; Referring Provider Family Medicine; Visit Provider Student in an Organized Health Care Education/Training Program | DX: M17.12 Unilateral primary osteoarthritis, left knee (principal) | CPT/HCPCS: 20610; J1040 ==

== ENCOUNTER → 2024-02-19 00:34 | Outpatient (CLI) | payer MEDICARE, SELFPAY ==
--- NOTE | 2024-02-19 08:00 | DI.DEXA_ITS ---
Exam(s) XR DEXA BONE DENSITY W/WO TRAVIS EXAM: XR DEXA BONE DENSITY W/WO TRAVIS CLINICAL HISTORY: SCREENING FOR OSTEOPOROSIS IN POSTMENOPAUSAL WOMAN,Z78.0 TECHNIQUE: COMPARISON: Comparison examination is 12/14/2003. FINDINGS: Lateral Spine Image: Unremarkable. No compression deformities identified. Left hip: Total T-Score: 0.2 . This compares to 1.6 on the prior examination. Total Z-Score: 1.9 T- and Z-scores: Within normal limits. Lumbar Spine: Total T-Score: 0.7. This compares to 0.9 on the prior examination. Total Z-Score: 3.0 T- and Z-scores: Within normal limits. IMPRESSION: No evidence of osteoporosis.
== END ==
PROVIDERS: PCP Family Medicine; Visit Provider Family Medicine
DX: Z78.0 Asymptomatic menopausal state (principal); Z13.820 Encounter for screening for osteoporosis
CPT/HCPCS: 77080

== ENCOUNTER → 2024-03-09 02:50 | Outpatient (CLI) | payer MEDICARE, SELFPAY ==
--- NOTE | 2024-03-09 07:15 | DI.RAD_ITS ---
Exam(s) XR FOOT LT COMPLETE EXAM: XR FOOT LT COMPLETE CLINICAL HISTORY: Painful hammer toe lt foot,m79.672,m20.42. TECHNIQUE: 2D digital imaging was performed. Three views. COMPARISON: No exams were available for comparison FINDINGS: BONES: No acute fracture is present. No bony destructive lesion is seen. Heel spurs. JOINTS: 1st metatarsal varus and hallux valgus. Mild degenerative changes at the 1st MTP joint. Spu rring at the medial aspect of the 1st metatarsal head. Degenerative changes also present at the ta rsal metatarsal joints. Flattening of the plantar arch. Hammertoe deformities. SOFT TISSUE: Normal. IMPRESSION: Hallux valgus. Hammertoe deformities. Pes planus. Heel spurs. DATA REPOSITORY: RADIATION DOSE DELIVERED:
== END ==
PROVIDERS: PCP Family Medicine; Visit Provider Podiatrist
DX: M79.672 Pain in left foot (principal); M20.42 Other hammer toe(s) (acquired), left foot
CPT/HCPCS: 73630

== ENCOUNTER 2024-03-09 09:30 | Outpatient (CLI) | payer MEDICARE, SELFPAY ==
[2024-03-09 09:15] LABS: Hemoglobin A1C 5.2 % (<5.7)
[2024-03-09 09:33] LABS: ALT 28 U/L (14-59); AST 20 U/L (15-37); Albumin 3.9 g/dL (3.4-5.0); Alkaline Phosphatase 134 U/L (46-116); Anion Gap 10.8 mmol/L (3-11); BUN 16 mg/dL (7-18); Bilirubin, Total 0.5 mg/dL (0.2-1.0); CO2 28.2 mmol/L (21.0-32.0); CREATININE 0.9 mg/dL (0.55-1.02); Calcium 9.1 mg/dL (8.5-10.1); Calculated LDL 74 mg/dL (<100); Chloride 105 mmol/L (98-107); Cholesterol 166 mg/dL (<200); Estimated GFR 67.92 (mL/min/1.73m2); Glucose 99 mg/dL (74-106); HDL Cholesterol 79 mg/dL (40-60); Potassium 4.3 mmol/L (3.5-5.1); Sodium 144 mmol/L (136-145); TSH (W/Ref FT4) 3.63 uIU/mL (0.36-3.74); Total Protein 6.9 g/dL (6.4-8.2); Triglyceride 69 mg/dL (<150)
[2024-03-09 19:26] LABS: Hepatitis C Ab w Rflx HCV PCR Negative (Negative)
== END 2024-03-09 09:31 | disposition home or self-care (01) ==
LOC: LBO 09:30
PROVIDERS: PCP Family Medicine; Visit Provider Family Medicine
DX: I10 Essential (primary) hypertension (principal); Z11.59 Encounter for screening for other viral diseases; E11.9 Type 2 diabetes mellitus without complications; E03.9 Hypothyroidism, unspecified
CPT/HCPCS: 36415; 80053; 80061; 86803; 97597; 83036; 84443

== ENCOUNTER → 2024-03-30 08:59 | Outpatient (BNVA) | payer MEDICARE, SELFPAY | PROVIDERS: PCP Family Medicine; Referring Provider Family Medicine; Visit Provider Podiatrist | DX: M79.671 Pain in right foot; L97.522 Non-pressure chronic ulcer of other part of left foot with fat layer exposed; M20.42 Other hammer toe(s) (acquired), left foot; M20.41 Other hammer toe(s) (acquired), right foot; M21.612 Bunion of left foot; I87.2 Venous insufficiency (chronic) (peripheral); B35.1 Tinea unguium; L60.3 Nail dystrophy; M79.672 Pain in left foot | CPT/HCPCS: 97597 ==

== ENCOUNTER → 2024-04-19 07:18 | Outpatient (BNVA) | payer MEDICARE, SELFPAY | PROVIDERS: PCP Family Medicine; Referring Provider Family Medicine; Visit Provider Surgery | DX: Z12.11 Encounter for screening for malignant neoplasm of colon (principal) ==

== ENCOUNTER → 2024-05-02 07:55 | Outpatient (BNVA) | payer MEDICARE, SELFPAY | PROVIDERS: PCP Family Medicine; Referring Provider Family Medicine; Visit Provider Student in an Organized Health Care Education/Training Program | DX: M17.12 Unilateral primary osteoarthritis, left knee (principal) | CPT/HCPCS: 99213 ==

== ENCOUNTER 2024-05-27 09:58 | Day surgery (SDC) | payer MEDICARE, SELFPAY ==
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
--- NOTE | 2024-05-26 20:50 | PDOC.DSDIS_ITS ---
Date of service: 05/27/24 Time of Service: 12:54 Discharge Plan Disposition Patient Disposition: Home Condition: Good Discharge Details Reason For Visit: screening colonoscopy Attending Provider: Teddy Malik Primary Care Provider: Tali Rosa Home Meds and New Rx's Prescriptions: Continued PreserVision AREDS-2 [id number] gt-ofbc-cj-mg capsule 1 tab PO BID acetaminophen [Tylenol Extra Strength] 500 mg tablet 500 mg PO QID PRN (DME) Aerochamber MV Spacer See Rx Instructions .Route Qty: 1 0RF Rx Instructions: As directed ketoconazole 2 % cream 1 applic topical DAILY Qty: 120 6RF Rx Instructions: Apply to toenails once daily triamcinolone acetonide 0.1 % cream 1 applic topical BID Qty: 80 2RF Rx Instructions: apply to foot cyanocobalamin (vitamin B-12) [Vitamin B-12] 1,000 MCG tablet 1 tab PO DAILY calcium carbonate [Caltrate 600] 600 MG tablet 1 tab PO DAILY CENTRUM SILVER TABLET 1 EACH tablet 1 ea PO DAILY levothyroxine 50 mcg tablet 50 mcg PO DAILY Qty: 90 3RF duloxetine 30 mg capsule,delayed release(DR/EC) 30 mg PO DAILY Qty: 90 5RF losartan 25 mg tablet 25 mg PO DAILY Qty: 10 4RF Held Xarelto 20 mg tablet 20 mg PO DAILY Qty: 7 4RF Hold Instructions: Resume on 05/28/24. Rx Instructions: must administer with evening meal Discontinued polyethylene glycol 3350 17 gram/dose powder 238 g PO ONCE Qty: 238 0RF Rx Instructions: take per colonoscopy instructions bisacodyl [Dulcolax (bisacodyl)] 5 mg tablet,delayed release (DR/EC) 5 mg PO ONCE Qty: 4 0RF Rx Instructions: take per colonoscopy instructions Discharge Instructions Instructions: Colon polyps, Diverticulosis (DC) Additional Instructions: Brenda, We were able to complete your colonoscopy today just as planned. I did find and remove one polyp today. This will be sent off for testing and once I know the nature of this polyp, the office will be in touch with recommendations for your next colonoscopy. Incidentally, you also have diverticulosis. This are weak spot in the colon wall that typically accumulate as we age. I attached some information here about diverticulosis as well as polyps. If you have any questions, please feel free to reach out at any time. 1. If tolerated, consume a soft, low fiber diet for 1-2 days. 2. Do not drive, drink alcohol, operate machinery, make critical decisions, or do activities that require coordination or balance for 24 hours. 3. Because air was put into your colon during the procedure, expelling air from your rectum (passing gas or farting) is normal. 4. You may not have a bowel movement for 1-3 days because of the colonoscopy pre p. This is normal. 5. Go directly to the emergency room if you notice any of the following: Develop chills (warm to touch), or if you have a thermometer and your temperature is above 101 Difficulty breathing or difficultly swallowing Persistent vomiting Severe abdominal pain, other than gas cramps Severe chest pain Black, tarry stools Any bleeding ? exceeding one tablespoon 6. Call your physician if the site where your intravenous was started becomes red, swollen, painful, and warm to touch. 7. Your physician has reviewed your pre-procedure medications. Please continue to take those medications as previously ordered. You will be given specific information/education regarding any changes to your medications before leaving. Activity:: Activity as Tolerated Diet:: As Tolerated Discharge Orders Discharge Orders: Discharge Order (Routine); Ordered 05/26/24 Ordered By: Teddy Malik DS: Diagnosis Discharge Diagnosis (1) Encounter for screening colonoscopy: Status: Acute Asessment and Plan: follow up on polypectomy results
--- NOTE | 2024-05-26 20:51 | COLE_ITS ---
Date of service: 05/27/24 Time of Service: 13:00 Colonoscopy Report Date of procedure: 05/27/24 Pre-op diagnosis general: screening colonoscopy Post-op diagnosis procedure note: other (diverticulosis and cecal polyp) Procedure: colonoscopy with polypectomy Surgeon: Teddy Malik Anesthesia Type: General:No Airway Estimated blood loss (mL): 5 Pathology: other (cecal polyp) Complications: None Disposition: same day Indications: Nickie is a 73 year old woman who is due for her next screening colonoscopy Prep: Miralax/Dulcolax Procedure Start Time: 12:26 Procedure End Time: 12:47 Retraction Time: 14 Findings: patterson-diverticulosis, 0.5 cm cecal polyp Procedure Description: After the induction of anesthesia, and with the patient in left lateral decubitus position, I began by performing an external anorectal exam. The perineum and skin were normal, as was the anal verge.? There was no evidence of external hemorrhoids.? Next, I performed a digital rectal exam.? I did not appreciate any abnormal findings.? Next, I advanced a colonoscope into the rectal vault.? I performed retroflexion.? This appeared normal.? Using insufflation, I then advanced the colonoscope beyond the rectal folds and into the sigmoid colon before advancing towards the cecum.? There is diverticulosis involving all segments of the colon.? The scope was noted to be in the cecum by identification of the ileocecal valve and appendiceal orifice.? Just a few centimeters away from the appendiceal orifice was a 0.5 cm cecal polyp. It was slightly pedunculated, and I removed this in piecemeal with cold forceps without any issue. I then began withdrawing the colonoscope using repeated irrigation as necessary for full evaluation of the colonic mucosa. ?Once the scope was withdrawn to the level of the rectum, great care was taken to examine portions of the rectal folds.? Finally, the scope was withdrawn and the patient was brought to the same-day surgery recovery unit as the anesthetic wore off. ?The findings and instructions were shared with the patient prior to discharge. [place] Bowel Prep [place] Bowel Prep Right Colon: 2 Left Colon: 2 Transverse Colon: 2 Total Score: 6
[2024-05-27 10:28] VITALS: BP 129/66; PULSE 75; RESP 16; TEMP 36.8; O2SAT 98
[2024-05-27] MEDS: Lactated Ringers 1,000 ML 80 ML IV (10:56)
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
[2024-05-27 11:53] VITALS: BMI 41.8
--- NOTE | 2024-05-27 12:33 | BOWEL_PTH ---
PATIENT: Nickie Whitaker LOC: [facility] U#:[id number] AGE/SX: 73/F ROOM: RE05/27/[address]: Teddy Malik MD : [id number] BED: DIS: 05/27/2024 SPEC #: [id number] RECD: 05/27/24 13:35 STATUS: ELLIS REQ #: [id number] DHIRAJ: 05/27/24 12:[address]: Teddy Malik DEPT: Surgical Specimen RECD BY: Karen Dior ENTERED: 05/27/24 13:36 SP TYPE: Bowel OTHR DR: Tali Rosa MD, DC Tissues: 1 - BIOPSY BOWEL Procedures: GROSS AND MICRO LEVEL 4 Comments: [id number]
[2024-05-27 12:55] VITALS: BP 135/65; PULSE 78; RESP 16; TEMP 36.5; O2SAT 94
--- NOTE | 2024-05-27 13:25 | W.ANESPOSTOP ---
Postoperative Evaluation Date, Time and Location Date Performed: 05/27/24 Time Performed: 13:03 Patient Location: Day Surgery Unit Vital Signs Most Recent Imported Vital Signs: Most Recent Vital Signs Temp Pulse Resp BP Pulse Ox 36.5 C 78 16 135/65 94 05/27/24 12:55 05/27/24 12:55 05/27/24 12:55 05/27/24 12:55 05/27/24 12:55 Pain Score Most Recent Pain Score: Most Recent Pain Score Pain Level 0 05/27/24 12:55 Assessment Mental Status: Awake (Alert & Oriented to Patient Baseline) Airway and Respiratory Function: Patent airway with normal (patient baseline) respiratory exam Cardiovascular Function: Hemodynamically Stable Hydration Status: Adequately Hydrated Nausea & Vomiting: No Nausea or Vomiting Pain: Pt. Denies Any Pain Peripheral Nerve Block: Patient did not receive a nerve block
[2024-05-27 13:27] VITALS: BP 135/57; PULSE 72; RESP 16; TEMP 36.5; O2SAT 97
== END 2024-05-27 14:04 | disposition home or self-care (01) ==
PROVIDERS: PCP Family Medicine; Visit Provider Surgery
PROC: 0DJD8ZZ Inspection of Lower Intestinal Tract, Via Natural or Artificial Opening Endoscopic (ICD-10-PCS; CPT 45378; principal; 2024-05-27 11:15)
DX: Z12.11 Encounter for screening for malignant neoplasm of colon (principal); I10 Essential (primary) hypertension; D12.0 Benign neoplasm of cecum; K57.30 Diverticulosis of large intestine without perforation or abscess without bleeding
CPT/HCPCS: 45380; 88305; J2001; J2704

== ENCOUNTER → 2024-06-01 13:29 | Outpatient (BNVA) | payer MEDICARE, SELFPAY | PROVIDERS: PCP Family Medicine; Referring Provider Family Medicine; Visit Provider Podiatrist | DX: L97.522 Non-pressure chronic ulcer of other part of left foot with fat layer exposed (principal); M20.41 Other hammer toe(s) (acquired), right foot; M20.42 Other hammer toe(s) (acquired), left foot; M21.612 Bunion of left foot; I87.2 Venous insufficiency (chronic) (peripheral); B35.1 Tinea unguium; L60.3 Nail dystrophy | CPT/HCPCS: 99213 ==

== ENCOUNTER 2024-06-02 02:24 | Outpatient (CLI) | payer MEDICARE, SELFPAY ==
[2024-06-02 14:28] LABS: HCT 40.6 % (36.0-46.0); HGB 13.5 g/dL (11.2-15.7); MCH 30.2 pg (27.0-33.0); MCHC 33.3 % (32.0-36.0); MCV 91 fL (80-95); MPV 9.3 fL (8.0-11.0); Platelet Count 282 10^3/uL (130-400); RBC 4.47 10^6/uL (3.93-5.22); RDW 12.4 % (11.7-14.6); RDW-SD 41.1 fL; WBC 6.05 10^3/uL (4.4-10.8)
[2024-06-02 15:10] LABS: Anion Gap 8.5 mmol/L (3-11); BUN 18 mg/dL (7-18); CO2 28.5 mmol/L (21.0-32.0); CREATININE 0.9 mg/dL (0.55-1.02); Calcium 8.9 mg/dL (8.5-10.1); Chloride 107 mmol/L (98-107); Estimated GFR 67.92 (mL/min/1.73m2); Glucose 97 mg/dL (74-106); Potassium 4.3 mmol/L (3.5-5.1); Sodium 144 mmol/L (136-145)
== END 2024-06-02 02:25 | disposition home or self-care (01) ==
LOC: LBO 02:25
PROVIDERS: PCP Family Medicine; Visit Provider Student in an Organized Health Care Education/Training Program
DX: M17.12 Unilateral primary osteoarthritis, left knee (principal); Z01.818 Encounter for other preprocedural examination
CPT/HCPCS: 36415; 80048; 85027

== ENCOUNTER 2024-06-02 13:16 | Outpatient (CLI) | payer MEDICARE, SELFPAY ==
--- NOTE | 2024-06-02 13:00 | DI.RAD_ITS ---
Exam(s) XR KNEE LT 1V XR STANDING ALIGNMENT EXAM: XR STANDING ALIGNMENT and XR knee LT 1 V CLINICAL HISTORY: TKR Planning. TECHNIQUE: 2D digital imaging was performed. Five images were obtained. COMPARISON: CR XR KNEE LT 3V AP,LAT,GUCCI from 03/20/2023 CR XR KNEE RT 3V AP,LAT,GUCCI from 03/20/2023 FINDINGS: BONES: The hips are well maintained. In the right knee, there is mild narrowing of the medial femora l tibial joint. Osteophytes are seen both medially and laterally. In the left knee, there is marked narrowing in the medial femoral tibial joint and moderate narrowing of the patellofemoral joint. Os teophytes are seen in both the patellofemoral and medial femoral tibial joint. There is a tiny joint effusion present. Enthesophytes are seen at the anterior patella. The ankles are well maintained.T here is no significant leg length discrepancy. SOFT TISSUE: Normal. IMPRESSION: Marked degenerative changes seen in the left knee. DATA REPOSITORY: RADIATION DOSE DELIVERED:
== END 2024-06-02 13:17 | disposition home or self-care (01) ==
LOC: DIORS 13:16
PROVIDERS: PCP Family Medicine; Referring Provider Family Medicine; Visit Provider Physician Assistant
DX: M17.12 Unilateral primary osteoarthritis, left knee (principal); Z01.818 Encounter for other preprocedural examination
CPT/HCPCS: 73560; 77073

== ENCOUNTER 2024-06-07 05:47 | Day surgery (SDC) | payer MEDICARE, SELFPAY ==
[2024-06-07] VITALS (23 sets, daily range): BP systolic 113–147; BP diastolic 45–74; PULSE 59–71; RESP 12–19; TEMP 36.2–36.7; O2SAT 95–98; BMI 42.5
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
[2024-06-07] MEDS: Acetaminophen 500 MG TAB 1000 MG PO (06:30)
[2024-06-07] MEDS: Gabapentin 300 MG CAP PO (06:31)
[2024-06-07] MEDS: Lactated Ringers 1,000 ML 80 ML IV (06:40)
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
[2024-06-07] MEDS: ceFAZolin 2 GM/50 ML BAG IVPB (07:42)
[2024-06-07] MEDS: TRANEXAMIC ACID/SOD. CHL. 1,000 MG/100 ML BAG 100 MG (07:45)
--- NOTE | 2024-06-07 07:55 | W.ANESNERVE ---
Nerve Block Single Injection Procedure Date and Time Date Performed: 06/07/24 Procedure Start: 07:20 Location Where Procedure Performed Procedure Location: Day Surgery Unit Reason Performed: Postoperative Analgesia Requesting Provider: Erasto Griffiths Timeout Performed Timeout Performed: Yes Monitoring Used ECG, Blood Pressure and SpO2 Sterility Sterility: Hand Hygiene, Surgical Cap, Surgical Mask, Sterile Gloves and Chlorhexidine Sedation Given During Procedure Sedation Given (Indicate Dose Given): Versed IV Dose:: 1 mg Patient Mental Status Patient Mental Status: Sedate with meaningful communication Nerve Block 1st Nerve Block: Laterality: Left Block Type: Adductor Canal Ultrasound Image Saved?: Yes Needle / Catheter Used: 120mm SonoPlex II Local Anesthetic Bolus (Indicate Dose Given): Injected in 3-5ml increments after negative blood aspiration and Bupivacaine 0.375% Dose:: 10 mL Additives (Indicate Dose Given): None Ultrasound: Sterile probe cover and gel used Nerve Stimulator: Supplement to Ultrasound use and No twitch or parasthesia noted < 0.5 mA Paresthesia: None Procedure Tolerated: No Complications Procedure Outcome: Successful Performed By: Adrian Brush 2nd Nerve Block: Laterality: Left Block Type: Other (anterior femoral cutaneous. ) Ultrasound Image Saved?: Yes Needle / Catheter Used: 120mm SonoPlex II Local Anesthetic Bolus (Indicate Dose Given): Bupivacaine 0.375% Dose:: 5 mL Additives (Indicate Dose Given): None Ultrasound: Sterile probe cover and gel used Nerve Stimulator: Supplement to Ultrasound use and No twitch or parasthesia noted < 0.5 mA Paresthesia: None Procedure Tolerated: No Complications Procedure Outcome: Successful Performed By: Adrian Brush
--- NOTE | 2024-06-07 09:34 | W.ANESPOSTOP ---
Postoperative Evaluation Date, Time and Location Date Performed: 06/07/24 Time Performed: 09:34 Patient Location: PACU Vital Signs Most Recent Imported Vital Signs: Most Recent Vital Signs Temp Pulse Resp BP Pulse Ox 36.7 C 62 13 117/48 L 98 06/07/24 07:18 06/07/24 09:26 06/07/24 09:26 06/07/24 09:26 06/07/24 09:26 Pain Score Most Recent Pain Score: Most Recent Pain Score Pain Level 0 06/07/24 07:18 Assessment Mental Status: Awake (Alert & Oriented to Patient Baseline) Airway and Respiratory Function: Patent airway with normal (patient baseline) respiratory exam Cardiovascular Function: Hemodynamically Stable Hydration Status: Adequately Hydrated Nausea & Vomiting: No Nausea or Vomiting Pain: Pain is tolerable per patient (spinal waning. upper back is sore. ) Peripheral Nerve Block: Regional nerve block not resolved at time of post operative discharge
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
--- NOTE | 2024-06-07 12:08 | W.PM.OP ---
Date of service: 06/07/24 Time of Service: 07:40 Operative Note Operative Note DATE OF PROCEDURE: 06/07/24 PRE-OP DIAGNOSIS: Left Knee Osteoarthritis POST-OP DIAGNOSIS: same PROCEDURE: Left Total Knee Replacement SURGEON: Erasto Griffiths DIRECTOR STRATEGIC PLANNING: Radha Peterson ANESTHESIA TYPE: Spinal Refer to Anesthesia Record ESTIMATED BLOOD LOSS: 300 PATHOLOGY: none sent TOURNIQUET TIME: 0 COMPLICATIONS: None Patient was transported to: PACU Patient's condition: stable Implants: 1. Depuy Attune Cementless Cruciate Retaining Femoral Component, Size 5 2. Depuy Attune Cementless Fixed Bearing Tibial Component, Size 4 3. Depuy Attune 5x6 CR/FB Poly 4. Depuy Attune Patellar Component, Size 35 Indications: I have seen Nickie in clinic for symptoms of knee arthritis, confirmed with radiographic findings. She has exhausted nonoperative methods and was having significant limitations in daily function and desired better function and less pain. I discussed the technical details of a knee replacement. I explained the risks of the procedure to include, but not limited to, bleeding, infection, pain, stiffness, fracture, damage to nerves and vessels, damage to muscles and tendons, loosening, need for repeat procedure, blood clot and cardiopulmonary demise. Despite these risks, Nickie elected to proceed. Findings: There was significant signs of arthritis throughout the knee involving all 3 compartments. Procedure Description: Nickie was greeted in the preoperative holding area where the correct side was identified and marked. The consent was reviewed with the patient and signed. The history and physical was updated. All questions were answered. Preoperative medications were administered: Acetaminophen 1000mg, Celebrex 400mg, and Gabapentin 300mg. An adductor canal block was then administered by the anesthesia team in the DSU. Nickie was taken back to the operating room. A spinal anesthestic was then administered. The patient was placed into the supine position on the operating room table. A nonsterile tourniquet was placed high onto the leg but only used for cementing. Posts were placed for positioning during the procedure. All bony prominences were well padded. Prophylactic antibiotics in the form of Cefazolin were administered. 1g of Tranxemic Acid was given intravenously within 30 minutes of incision. The left leg was then prepped with Chloraprep and draped in a standard fashion with impervious stockinette. A second prep with Chloraprep was performed prior to application of Iodine impregnated skin protection. A timeout to confirm correct identity, side and site, procedure, allergies, anesthesia, and medical concerns was performed. With the knee in some flexion, a midline incision was made overlying the knee. Full thickness skin flaps were raised once the extensor mechanism was encountered. These were raised medially and laterally. Any bleeding was controlled with electrocautery. Once the extensor mechanism was fully exposed, a medial parapatellar arthrotomy was performed in a flexed position. All bleeding from the arthrotomy and the geniculate arteries was coagulated. A medial subperiosteal peel was performed with electrocautery to the midcoronal plane. The fat pad was removed while keeping the patellar tendon protected. The anterior distal femur synovium was removed for later visualization. The ACL and PCL were resected and the anterior horn of the lateral meniscus was transected. The knee was then flexed with the patella everted. Large osteophytes from the tibia were removed. Large osteophytes from the femur were removed. Using a step drill, and based on preoperative templating, the femoral canal was entered. This was done with a step drill without any difficulty. The intramedullary distal femoral cut guide was inserted, set to a 5 degree valgus cut and 9mm cut thickness. The distal femoral cut guide was then held in position and pinned. With the soft tissues protected, the distal cut was performed. This was passed over a few times to ensure a planar cut. I then turned attention to the tibia. The extramedullary guide was placed onto the leg. The distal aspect was slid medial to adjust for position of center of ankle and stay in line with shaft of the tibia. Approximately 3-5 degrees of posterior slope was kept in the proximal cutting guide. The center of the guide was aligned with the PCL. The stylus was used to assess cut thickness. The medial side, most involved side, was set for a 4mm cut. This was then held in position and pinned into place with 2 additional pins and a cross pin for stability. The medial and lateral collateral ligaments were protected and the cut was performed. With this completed, it was assessed and noted to be of appropriate dimensions. The guide was removed. A spacer block was inserted and the knee was brought into extension. The 6mm spacer block provided full extension, without hyperextension and with stability of both the medial and lateral collateral ligaments was assessed. The pins from the femur and the tibia were then removed. The distal femur was then sized. The anterior stylus was placed onto the lateral ridge of the anterior femur. This indicated a size 5 femur. The external rotation of the guide was adjusted to 3 degrees to match the epicondylar axis, perpendicular to Brooklynn?s line. The 4-in-1 cutting guide was the placed. The posterior medial femur cut was evaluated and appeared of good thickness. The spacer block was inserted underneath the cutting guide and stability was confirmed in 90 degrees of flexion. An blanche wing was used to confirm appropriate position of the anterior cut to avoid notching. This cutting guide was ensured to be flush on the cut surface and then pinned into place with headed pins. While protecting the soft tissues, quad tendon, and collateral ligaments, the anterior and posterior cuts were performed with a saw. The central two pins were removed and the posterior and anterior chamfers were cut next. The notch-cutting guide was placed. This was pinned to lateralize the femoral component as much as possible while keeping it flush on the cut surface. This was then pinned into position. A reciprocating saw was used to make the notch cut. A rasp smoothed the cut surfaces. The medial and lateral menisci were removed. A trial femoral component was then inserted, impacted down to the cut surfaces, and the lug holes were drilled. A provisional trial tibial component was placed and the knee was brought through range of motion. There was noted to be excellent extension and flexion. There was no significant instability. The patella was tracking without thumbs. A size 6mm polyethylene component provided the best range of motion and stability with less than 2mm gapping with medial and lateral stress and full extension without significant hyperextension. The tibial cut surface was fully exposed. The tibia was then sized as a 4. The tibia had been previously marked during trialing to correspond to the center of the tibial component to help with rotation. The trial was aligned to this sara, approximately rotated to the medial 1/3rd of the tibial tubercle. The trial was pinned into place. The tibia was prepared with a reamer and a keel punch and lug holes. The knee was then brought into extension and the patella was measured as 22mm. Using the patellar clamp and cut guide, this was resected to a flat surface with at least 13mm of thickness remaining. The size 35 patella fit the best. This was oriented and then clamped into position. The lugs were drilled. The trial components were removed. The final components were opened on the back table. The periosteal and capsular tissues, especially posteriorly, around the knee were then systematically injected with a periarticular cocktail consisting of 246mg of Ropivacaine, 0.5mg of Epinephrine, 0.08mg of Clonidine, and 30mg of Ketorolac, diluted to 100cc. On the back table, with the implants opened, the cement was mixed. One batch of high viscosity cement was prepared with vacuum assistance. After the cement was ready a small amount was placed on the cut surface of the patella and the patellar button was clamped into position and held. While the cement was hardening, the cementless knee components were placed. Starting with the tibial component, the tibia was subluxed anteriorly and the lug holes of the component were lined up. The tibia was then impacted with an impactor and mallet until the tibial component was in contact with the tibia. The final polyethylene component was inserted. Then, the femoral component was inserted. The lug holes were aligned and the component was impacted into position. The knee was irrigated with Surgiphor Betadine solution. This was allowed to sit in the knee for 3 minutes and then it was irrigated out with saline. After the cement had finally cured, approximately 15min, the clamp was removed from the patella and the knee was taken through range of motion. The patella was tracking with a no-thumbs technique. The capsule was then reapproximated with a No. 1 Vicryl at multiple locations. The capsule was finally closed with a No. 2 Stratafix, barbed suture. The second dosing of 1g TXA was started. Deep tissues were then reapproximated with 0 Vicryl and 2-0 Vicryl. The skin was closed with a running 3-0 Monocryl in a subcuticular fashion. This was reinforced with skin glue. A Mepilex silver dressing was applied along with a [id number] ISABEL wrap. A CryoCuff was applied. Nickie was transferred to the hospital bed without difficulty an suffering no apparent complication. Nickie has a good prognosis. Physical therapy will start today and without restrictions, weight-bearing as tolerated. Aspirin 81mg BID will be used for DVT prophylaxis.
== END 2024-06-07 11:35 | disposition home or self-care (01) ==
PROVIDERS: PCP Family Medicine; Visit Provider Student in an Organized Health Care Education/Training Program
PROC: (CPT 27447; principal; 2024-06-07 07:30)
DX: M17.12 Unilateral primary osteoarthritis, left knee (principal); I87.2 Venous insufficiency (chronic) (peripheral); I48.91 Unspecified atrial fibrillation; I48.92 Unspecified atrial flutter; E03.9 Hypothyroidism, unspecified; K44.9 Diaphragmatic hernia without obstruction or gangrene; I10 Essential (primary) hypertension; M48.061 Spinal stenosis, lumbar region without neurogenic claudication; Z79.01 Long term (current) use of anticoagulants
CPT/HCPCS: 27447; 76942; 97110; 97161; C1776; J0665; J0690; J1100; J2250; J2401; J2405; J2704

== ENCOUNTER 2024-06-20 11:42 | Outpatient (CLI) | payer MEDICARE, SELFPAY ==
--- NOTE | 2024-06-20 10:00 | DI.RAD_ITS ---
Exam(s) XR KNEE LT 1V XR STANDING ALIGNMENT EXAM: XR STANDING ALIGNMENT and XR knee LT 1 V CLINICAL HISTORY: 1ST POST OP L TKA. TECHNIQUE: 2D digital imaging was performed. Five images were obtained. COMPARISON: CR XR KNEE LT 1V from 06/02/2024 CR XR STANDING ALIGNMENT from 06/02/2024 FINDINGS: BONES: The hips are well maintained. There is moderate narrowing of the medial femoral tibial joint of the right knee. The patient is now status post left total knee replacement. The orthopedic hardw are appears in good position. No lucencies are seen in or about the orthopedic hardware. The ankles are well maintained.The left lower extremity is approximately 1 cm shorter than the right lower extr emity. SOFT TISSUE: Normal. IMPRESSION: New left total knee replacement. DATA REPOSITORY: RADIATION DOSE DELIVERED:
== END 2024-06-20 11:43 | disposition home or self-care (01) ==
LOC: DIORS 11:43
PROVIDERS: PCP Family Medicine; Referring Provider Family Medicine; Visit Provider Physician Assistant
DX: Z96.652 Presence of left artificial knee joint (principal); Z47.1 Aftercare following joint replacement surgery
CPT/HCPCS: 73560; 77073

== ENCOUNTER 2024-07-08 11:03 | Outpatient (CLI) | payer MEDICARE, SELFPAY ==
--- NOTE | 2024-07-08 10:15 | DI.RAD_ITS ---
Exam(s) XR KNEE LT 3V AP,LAT,GUCCI EXAM: XR KNEE LT 3V AP,LAT,GUCCI CLINICAL HISTORY: TKR Injury. TECHNIQUE: 2D digital imaging was performed. COMPARISON: CR XR STANDING ALIGNMENT from 06/20/2024 CR XR KNEE LT 1V from 06/20/2024 FINDINGS: 3 views There is stable position alignment of the components of the left knee prosthesis. No fracture or loo sening evident. No radiopaque foreign bodies. No osseous lesions. IMPRESSION: Stable satisfactory appearance. No fracture evident DATA REPOSITORY: RADIATION DOSE DELIVERED:
== END 2024-07-08 11:04 | disposition home or self-care (01) ==
LOC: DIORS 11:04
PROVIDERS: PCP Family Medicine; Referring Provider Family Medicine; Visit Provider Physician Assistant
DX: S89.92XA Unspecified injury of left lower leg, initial encounter (principal); Z96.652 Presence of left artificial knee joint; W19.XXXA Unspecified fall, initial encounter
CPT/HCPCS: 73562; 99213

== ENCOUNTER → 2024-07-18 13:24 | Outpatient (BNVA) | payer MEDICARE, SELFPAY | PROVIDERS: PCP Family Medicine; Referring Provider Family Medicine; Visit Provider Student in an Organized Health Care Education/Training Program | DX: Z47.1 Aftercare following joint replacement surgery (principal); M25.662 Stiffness of left knee, not elsewhere classified; Z96.652 Presence of left artificial knee joint ==

== ENCOUNTER → 2024-08-15 08:25 | Outpatient (BNVA) | payer MEDICARE, SELFPAY | PROVIDERS: PCP Family Medicine; Referring Provider Family Medicine; Visit Provider Student in an Organized Health Care Education/Training Program | DX: Z47.1 Aftercare following joint replacement surgery (principal); Z96.652 Presence of left artificial knee joint | CPT/HCPCS: 99024 ==

== ENCOUNTER 2024-08-18 11:17 | Outpatient (CLI) | payer MEDICARE, SELFPAY ==
[2024-08-18 11:04] LABS: HCT 40.1 % (36.0-46.0); HGB 13.1 g/dL (11.2-15.7); MCHC 32.7 % (32.0-36.0); MCV 89 fL (80-95); MPV 9.7 fL (8.0-11.0); Platelet Count 338 10^3/uL (130-400); RBC 4.51 10^6/uL (3.93-5.22); RDW-SD 38.8 fL; WBC 5.56 10^3/uL (4.4-10.8)
[2024-08-18 11:06] LABS: Bilirubin Negative (Negative); Blood Negative (Negative); Clarity Sl Cloudy (Clear); Glucose Negative (Negative); Ketones Negative (Negative); Leukocyte Esterase Small (Negative); Nitrite Negative (Negative); Specific Gravity <= 1.005 (1.005-1.025); Urobilinogen 0.2 mg/dL (Up to 0.2)
[2024-08-18 11:15] LABS: Bacteria Few HPF (Negative); Crystals Negative HPF (Negative); Epithelial Cells Moderate HPF (Negative); RBC 0-2 HPF (0-2)
[2024-08-18 11:15] LABS: Hemoglobin A1C 4.7 % (<5.7)
[2024-08-18 11:16] LABS: C & S Indicated? No; Casts Negative LPF (Negative); Mucus Trace (Negative)
[2024-08-18 11:19] LABS: ALT 25 U/L (14-59); AST 19 U/L (15-37); Albumin 3.9 g/dL (3.4-5.0); Alkaline Phosphatase 164 U/L (46-116); Anion Gap 8.6 mmol/L (3-11); BUN 20 mg/dL (7-18); Bilirubin, Total 0.43 mg/dL (0.2-1.0); CO2 28.4 mmol/L (21.0-32.0); CREATININE 0.9 mg/dL (0.55-1.02); Calcium 9.6 mg/dL (8.5-10.1); Chloride 104 mmol/L (98-107); Estimated GFR 67.92 (mL/min/1.73m2); Glucose 100 mg/dL (74-106); Potassium 4.4 mmol/L (3.5-5.1); Sodium 141 mmol/L (136-145); TSH (W/Ref FT4) 2.77 uIU/mL (0.36-3.74); Total Protein 7.4 g/dL (6.4-8.2)
== END 2024-08-18 11:18 | disposition home or self-care (01) ==
LOC: LBO 11:21
PROVIDERS: PCP Family Medicine; Visit Provider Family Medicine
DX: R53.83 Other fatigue (principal); E11.9 Type 2 diabetes mellitus without complications; E03.9 Hypothyroidism, unspecified; I10 Essential (primary) hypertension
CPT/HCPCS: 36415; 80053; 85027; 81003; 81015; 83036; 84443

== ENCOUNTER → 2024-09-15 07:50 | Outpatient (BNVA) | payer MEDICARE, SELFPAY | PROVIDERS: PCP Family Medicine; Visit Provider Student in an Organized Health Care Education/Training Program | DX: Z47.1 Aftercare following joint replacement surgery (principal); Z96.652 Presence of left artificial knee joint | CPT/HCPCS: 99024 ==

== ENCOUNTER 2024-09-21 00:46 | Outpatient (CLI) | payer MEDICARE, SELFPAY ==
--- NOTE | 2024-09-21 08:10 | DI.RAD_ITS ---
Exam(s) XR THUMB LT EXAM: XR THUMB LT CLINICAL HISTORY: left thumb pain,m79.645. TECHNIQUE: 2D digital imaging was performed. Three views. COMPARISON: None. FINDINGS: BONES: No acute fracture is present. No bony destructive lesion is seen. JOINTS: No dislocation present. Mild degenerative changes of the interphalangeal joints at 1st carpa l metacarpal joint. SOFT TISSUE: Normal. IMPRESSION: Mild degenerative changes but no acute abnormality. DATA REPOSITORY: RADIATION DOSE DELIVERED:
[2024-09-21] MEDS: Barium Sulfate 98% W/W 140 ML BTL PO (09:08)
[2024-09-21] MEDS: Barium Sulfate 60% W/V 355 ML BTL PO (09:09)
[2024-09-21] MEDS: Simethicone/Sod Bicarb/Cit Ac, 4 gram PACKET 1 PACKET PO (09:10)
[2024-09-21] MEDS: Barium Sulfate 700 MG TAB PO (09:10)
--- NOTE | 2024-09-21 09:11 | DI.RAD_ITS ---
Exam(s) RF BARIUM SWALLOW EXAM: RF BARIUM SWALLOW CLINICAL HISTORY: assess hiatal hernia,persistent nausea,k44.9 TECHNIQUE: 2D and realtime digital imaging was performed. CONTRAST MATERIAL: Thick and thin barium and barium tablet were administered. COMPARISON: CT CHEST ABD PELVIS WITH CONTRAST from 03/23/2017 CR XR CHEST 2V PA LATERAL from 11/11/2023 FINDINGS: The PA and lateral chest films show normal heart size and clear lung hanley. There are prominent end plate osteophytes projecting anteriorly in the lower thoracic spine. The lateral disaster recovery analyst view of the neck is shows degenerative disc changes and facet degenerative changes. Esophagus: The patient swallowed barium without difficulty. Noevidence for mucosal erosions. Nofol d thickening. No mass is visible. Nostricture. Mild cricopharyngeus impression. The barium tablet passed into the stomach without delay. Motility: There is a normal primary stripping wave. tertiary contractions were noted when the patien t was supine. There is a small hiatal hernia. Moderate gastroesophageal reflux was observed during the exam. Per surgical changes of the stomach. 2 small diverticula noted at the left lateral fundus. IMPRESSION: Small hiatal hernia and gastroesophageal reflux. Mild cricopharyngeus impression. RADIATION DOSE DELIVERED: Ka,r=23.7 mGy
--- NOTE | 2024-09-21 09:28 | DI.MAMMO_ITS ---
Exam(s) MAMMO SCREENING EXAM: MAMMO SCREENING CLINICAL HISTORY: screening,z12.39 TECHNIQUE: Mammograms were interpreted according to the usual protocol including computer analysis w [employer] CAD system, tomosynthesis and C-view imaging. COMPARISON: 2016 through 2022 FINDINGS: The breasts are composed of mainly fatty density , Breast Density category A. No suspicious masses or suspicious microcalcifications are seen. No skin thickening or abnormal axillary lymph nodes are seen. There has been no significant change from prior exams. IMPRESSION: BI-RADS Category 1, Negative mammogram Yearly screening mammography is recommended. Breast Density - Category A, fatty density. A negative radiographic report should not delay biopsy if a dominant or clinically suspicious mass is present. Up to ten percent of cancers are not identified on mammography. A negative report may reinforce clinical impression. Adenosis and dense breasts may obscure an underlying neoplasm. False positive reports average 6 to 10%. Patient will receive a letter notifying them of these results.
== END 2024-09-21 01:06 ==
LOC: DI 00:46
PROVIDERS: PCP Family Medicine; Visit Provider Family Medicine
DX: K44.9 Diaphragmatic hernia without obstruction or gangrene (principal); Z12.31 Encounter for screening mammogram for malignant neoplasm of breast; M18.32 Unilateral post-traumatic osteoarthritis of first carpometacarpal joint, left hand
CPT/HCPCS: 77063; 77067; 73140; 74221; J3490

== ENCOUNTER 2024-11-11 01:24 | Outpatient (CLI) | payer MEDICARE, SELFPAY ==
[2024-11-11 13:08] LABS: Vitamin B12 216 pg/mL (193-986)
== END 2024-11-11 01:25 | disposition home or self-care (01) ==
LOC: LOS 01:24
PROVIDERS: PCP Family Medicine; Visit Provider Family Medicine
DX: R53.83 Other fatigue (principal); E53.8 Deficiency of other specified B group vitamins
CPT/HCPCS: 36415; 82607

== ENCOUNTER → 2024-12-21 10:15 | Outpatient (BNVA) | payer MEDICARE, SELFPAY | PROVIDERS: PCP Family Medicine; Referring Provider Family Medicine; Visit Provider Podiatrist | DX: M79.672 Pain in left foot (principal); L97.522 Non-pressure chronic ulcer of other part of left foot with fat layer exposed; M20.41 Other hammer toe(s) (acquired), right foot; M20.42 Other hammer toe(s) (acquired), left foot; M21.612 Bunion of left foot; I87.2 Venous insufficiency (chronic) (peripheral); B35.1 Tinea unguium; L60.3 Nail dystrophy | CPT/HCPCS: 97597 ==

== ENCOUNTER 2024-12-27 02:22 | Outpatient (CLI) | payer MEDICARE, SELFPAY ==
--- NOTE | 2024-12-27 06:15 | DI.RAD_ITS ---
Exam(s) XR FOOT LT COMPLETE EXAM: XR FOOT LT COMPLETE CLINICAL HISTORY: pre op,HAMMERTOE LT FOOT, M20.42. TECHNIQUE: 2D digital imaging was performed of the left foot. Three images were obtained. AP, obli que and lateral views were obtained. COMPARISON: CR XR FOOT LT COMPLETE from 03/09/2024 FINDINGS: BONES: No acute fracture is present. No bony destructive lesion is seen. There is a hallux valgus def ormity. Enthesophyte is seen at the posterior calcaneus. There is a small plantar calcaneal spur. JOINTS: No dislocation present. There are degenerative changes seen in the foot including the tarsome tatarsal joints, the 1st MTP joint and the interphalangeal joints of the toes. There is spurring ant eriorly at the ankle joint. There is a triangular shaped well corticated osseous body at the anterio r aspect of the ankle joint which may represent a loose body. There is flexion of the 2nd and 3rd to es which may represent hammertoe deformities. SOFT TISSUE: Normal. IMPRESSION: Chronic arthritic changes seen in the foot with hammertoe deformities and hallux valgus. Please see the above discussion for complete details. DATA REPOSITORY: RADIATION DOSE DELIVERED:
== END 2024-12-27 02:42 ==
PROVIDERS: PCP Family Medicine; Visit Provider Podiatrist
DX: M20.42 Other hammer toe(s) (acquired), left foot (principal)
CPT/HCPCS: 73630

== ENCOUNTER → 2025-01-05 08:43 | Outpatient (BNVA) | payer MEDICARE, SELFPAY | PROVIDERS: PCP Family Medicine; Referring Provider Family Medicine; Visit Provider Podiatrist | DX: M79.672 Pain in left foot (principal); B35.1 Tinea unguium; L60.3 Nail dystrophy; M20.42 Other hammer toe(s) (acquired), left foot | CPT/HCPCS: 28010 ==

== ENCOUNTER → 2025-01-19 09:30 | Outpatient (BNVA) | payer MEDICARE, SELFPAY | PROVIDERS: PCP Family Medicine; Referring Provider Family Medicine; Visit Provider Podiatrist | DX: L60.3 Nail dystrophy (principal); B35.1 Tinea unguium; Z98.890 Other specified postprocedural states | CPT/HCPCS: 99213 ==

== ENCOUNTER → 2025-02-13 10:22 | Outpatient (BNVA) | payer MEDICARE, SELFPAY | PROVIDERS: PCP Family Medicine; Referring Provider Family Medicine; Visit Provider Podiatrist | DX: M79.672 Pain in left foot (principal); B35.1 Tinea unguium; L60.3 Nail dystrophy; M20.42 Other hammer toe(s) (acquired), left foot | CPT/HCPCS: 99213 ==

== ENCOUNTER 2025-04-05 00:18 | Outpatient (CLI) | payer MEDICARE, SELFPAY ==
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
[2025-04-05] MEDS: Barium Sulfate 60% W/V 355 ML BTL PO (10:43)
[2025-04-05] MEDS: Barium Sulfate 700 MG TAB PO (10:44)
[2025-04-05] MEDS: Barium Sulfate 98% W/W 140 ML BTL PO (10:45)
== END 2025-04-05 00:38 ==
LOC: DI 00:18
PROVIDERS: PCP Family Medicine; Visit Provider Family Medicine
DX: R13.10 Dysphagia, unspecified (principal); K46.9 Unspecified abdominal hernia without obstruction or gangrene
CPT/HCPCS: 74221; J3490

== ENCOUNTER 2025-05-31 02:29 | Outpatient (CLI) | payer MEDICARE, SELFPAY ==
[2025-05-31 13:33] LABS: Vitamin B12 925 pg/mL (193-986)
== END 2025-05-31 02:30 | disposition home or self-care (01) ==
LOC: LOS 02:29
PROVIDERS: PCP Family Medicine; Visit Provider Family Medicine
DX: E53.8 Deficiency of other specified B group vitamins (principal)
CPT/HCPCS: 36415; 82607

== ENCOUNTER 2025-06-08 11:05 | Outpatient (CLI) | payer MEDICARE, SELFPAY ==
--- NOTE | 2025-06-08 08:15 | DI.RAD_ITS ---
Exam(s) XR KNEE LT 2V AP,LAT EXAM: XR KNEE LT 2V AP,LAT INDICATION: F/U LEFT TKA. COMPARISON: CR XR KNEE LT 3V AP,LAT,GUCCI from 07/08/2024 TECHNIQUE: 2D digital imaging was performed. Two views. FINDINGS: Stable alignment of total knee prosthesis. No abnormal bony lucencies. DATA REPOSITORY: RADIATION DOSE DELIVERED:
== END 2025-06-08 11:06 | disposition home or self-care (01) ==
LOC: DIORS 11:05
PROVIDERS: PCP Family Medicine; Visit Provider Physician Assistant
DX: Z47.1 Aftercare following joint replacement surgery (principal); Z96.652 Presence of left artificial knee joint; M25.562 Pain in left knee
CPT/HCPCS: 99213; 73560

== ENCOUNTER 2025-07-06 13:18 | Outpatient (CLI) | payer MEDICARE, SELFPAY ==
--- NOTE | 2025-07-06 12:17 | DI.CT_ITS ---
Exam(s) CT HEAD FACIAL WO EXAM: CT HEAD FACIAL WO CLINICAL HISTORY: S09.90XA head injury, on blood thinner, right facial injury. TECHNIQUE: Imaging Protocol: Axial computed tomography images with coronal and sagittal reformatted images were created and reviewed COMPARISON: CT CT HEAD WO from 11/11/2023 FINDINGS: CT Head: Ventricles and Extra axial spaces: Normal in size and morphology for the patient's age. Hemorrhage: None. Cerebral parenchyma: There are areas of decreased attenuation in the white matter consistent with chronic microvascular ischemic disease. Midline shift: None. Brainstem/Cerebellum: Normal. Calvarium: Normal. Visualized Paranasal sinuses/Mastoids: Clear. Soft Tissues: Unremarkable. CT Face: Facial Bones: No definite fracture is noted in facial bones. Sinuses and Mastoids: Unremarkable. Globes, extraocular muscles, optic nerves and retrobulbar fat: Normal. Upper aerodigestive tract: Normal. Mandible and bilateral temporomandibular joints: Normal. Soft tissues: Normal. IMPRESSION: 1. No acute intracranial process. 2. No acute facial fracture. RADIATION DOSE DELIVERED: 1,068.52mGy.cm Total DLP DATA REPOSITORY: All CT scans at this facility are submitted to the National Radiology Data Registry (NRDR) Dose Index Registry (DIR) with the [employer] ([employer]). RADIATION OPTIMIZATION: All CT scans at this facility use at least one of these dose optimization techniques: automated exposure control; mA and/or kV adjustment per patient size (includes targeted exams where dose is matched to clinical indication); or iterative reconstruction.
== END 2025-07-06 13:38 ==
LOC: DI 13:18
PROVIDERS: PCP Family Medicine; Visit Provider Physician Assistant
DX: S09.90XA Unspecified injury of head, initial encounter (principal); X58.XXXA Exposure to other specified factors, initial encounter
CPT/HCPCS: 70450; 70486

== ENCOUNTER 2025-08-08 02:45 | Outpatient (CLI) | payer MEDICARE, SELFPAY ==
[2025-08-08 14:15] LABS: HCT 37.1 % (36.0-46.0); HGB 11.4 g/dL (11.2-15.7); MCH 28.1 pg (27.0-33.0); MCHC 30.7 % (32.0-36.0); MCV 91 fL (80-95); MPV 9.9 fL (8.0-11.0); Platelet Count 318 10^3/uL (130-400); RBC 4.06 10^6/uL (3.93-5.22); RDW 13.3 % (11.7-14.6); RDW-SD 45.2 fL; WBC 6.82 10^3/uL (4.4-10.8)
[2025-08-08 15:10] LABS: ALT 31 U/L (14-59); AST 19 U/L (15-37); Albumin 3.5 g/dL (3.4-5.0); Alkaline Phosphatase 139 U/L (46-116); Anion Gap 7.3 mmol/L (3-11); BUN 22 mg/dL (7-18); Bilirubin, Total 0.3 mg/dL (0.2-1.0); CO2 28.7 mmol/L (21.0-32.0); Calcium 8.6 mg/dL (8.5-10.1); Calculated LDL 78 mg/dL (<100); Chloride 106 mmol/L (98-107); Cholesterol 166 mg/dL (<200); Estimated GFR 67.50 (mL/min/1.73m2); Glucose 93 mg/dL (74-106); HDL Cholesterol 67 mg/dL (>or=50); Potassium 4.3 mmol/L (3.5-5.1); Sodium 142 mmol/L (136-145); TSH (W/Ref FT4) 3.34 uIU/mL (0.36-3.74); Total Protein 6.4 g/dL (6.4-8.2); Triglyceride 106 mg/dL (<150)
== END 2025-08-08 02:46 | disposition home or self-care (01) ==
LOC: LOS 02:45
PROVIDERS: PCP Family Medicine; Referring Provider Family Medicine; Visit Provider Family Medicine
DX: E03.9 Hypothyroidism, unspecified (principal); I10 Essential (primary) hypertension; Z79.01 Long term (current) use of anticoagulants
CPT/HCPCS: 36415; 80053; 80061; 85027; 84443

== ENCOUNTER → 2025-09-22 02:58 | Outpatient (CLI) | payer MEDICARE, SELFPAY ==
--- NOTE | 2025-09-22 06:45 | DI.MAMMO_ITS ---
Exam(s) MAMMO SCREENING EXAM: MAMMO SCREENING CLINICAL HISTORY: screening,z12.39. TECHNIQUE: Bilateral full field digital CC and MLO mammographic images were obtained with 3D tomosynthesis and utilizing computer aided detection (CAD). COMPARISON: Prior mammograms were reviewed. FINDINGS: There has been no significant change in the appearance and distribution of the fibroglandular tissue. Benign-appearing lymph node in the right breast is unchanged from at least 2017 There are no new spiculated masses nor malignant appearing microcalcification groups. There is no significant architectural distortion nor skin thickening-retraction. IMPRESSION: No radiographic evidence of malignancy. BI-RADS Category 1 - Negative Breast Density - Category A - The breast are almost entirely fatty. Breast density Category C or D implies that the patient has dense breast tissue. Dense breast tissue can make it harder to find cancer on a mammogram. Dense breast tissue is also associated with an increased risk of breast cancer. This information about the result of the mammogram report was provided to the patient to raise their awareness. Use this report when you speak with the patient about their risks for breast cancer, which includes their family history. At that time, you may recommend additional screening tests (Ultrasound or MRI) as these tests may add significant information. A negative radiographic report should not delay biopsy if a dominant or clinically suspicious mass is present. Up to ten percent of cancers are not identified on mammography. A negative report may reinforce clinical impression. Adenosis and dense breasts may obscure an underlying neoplasm. False positive reports average 6 to 10%. Patient will receive a letter notifying them of these results.
== END ==
LOC: DI 02:58
PROVIDERS: PCP Family Medicine; Visit Provider Family Medicine
DX: Z12.31 Encounter for screening mammogram for malignant neoplasm of breast (principal); R92.323 Mammographic fibroglandular density, bilateral breasts
CPT/HCPCS: 77063; 77067